=== PATIENT | female | born 1970 | race Caucasian/White ===

== ENCOUNTER 2016-02-22 15:48 | Emergency (ER) | payer OTHER ==
[~2016-02-22 15:48] MED LIST: /PANT40TA OR; BABY81CH OR; GLUC500T OR; LISI10TA4 OR; MAALSUS OR; No Historical Meds
[2016-02-22] MEDS ORDERED: BENZONATATE 100 MG CAP As Ordered ONE (18:14)
--- NOTE | 2016-02-22 18:46 | EDDOCDS ---
Physician Documentation [facility] Name: Jackelin Galindo Age: 45 yrs Sex: Female : 1970 Arrival Date: 02/22/2016 Time: 15:48 Bed I9 / 22 Private MD: NO PRIMARY PHYSICIAN, . Disposition: 02/22/16 18:28 Discharged to Home/Self Care. Impression: Acute upper respiratory infection, unspecified. - Condition is Stable. - Discharge Instructions: Upper Respiratory Infection, Adult. - Prescriptions for Tylenol- Codeine #3 300-30 mg Oral Tablet - take 2 tablet by ORAL route every 6 hours As needed MDD: 4 tabs; 30 tablet. Albuterol Sulfate 90 mcg/actuation Inhalation HFA Aerosol Inhaler - inhale 2 puff by INHALATION route every 4 hours As needed; 1 Inhaler. - Medication Reconciliation, Local Pharmacy Hours form. - Follow up: . NO PRIMARY PHYSICIAN; When: Call to arrange an appointment; Reason: Recheck today's complaints. - Problem is new. - Symptoms are unchanged. - Notes: You were evaluated in the emergency department for an upper respiratory infection. An EKG was done and it did not show any abnormalities. Tessalon Perles were administered in the ED to help with your cough. At time of discharge both Tylenol with Codeine and Albuterol was prescribed. Please make arrangements to follow-up with a primary care provider at your soonest convenience. Historical: - Allergies: No known drug Allergies; - Home Meds: 1. aspirin 81 mg Oral TbEC 1 tab once daily 2. lisinopril 5 mg Oral tab 1 tab once daily 3. metformin 1,000 mg Oral tr24 1 tab twice a day 4. naproxen 500 mg Oral TbEC 1 tab 2 times per day - PMHx: Diabetes - NIDDM: controlled; Hypertension; - PSHx: none; - Social history: Smoking status: Patient states was never smoker of tobacco. No barriers to communication noted, The patient speaks fluent Korean, Speaks appropriately for age. - Family history: Not pertinent. - : The pt / caregiver states he / she is not on anticoagulants. Home medication list is obtained from the patient. - Exposure Risk Screening:: None identified. 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 4 in. (162.56 cm); Pain 9/10; 18:03 BP 156 / 77; Pulse 68; Resp 20 S; Pulse Ox 95% on R/A; ms2 15:50 Body Mass Index 40.17 (106.14 kg, 162.56 cm) elp MDM: 18:00 Recheck B/P ordered. sd1 18:05 ECG WITH READING ER PHYS+CARDIAG ordered. EDMS 18:06 Tessalon Perle 100 mg PO once ordered. dy 18:42 Financial registration complete. zo 18:45 [facility] Payment Agreement was scanned into [employer] and attached to record. zo Administered Medications: 18:06 CANCELLED (Other Intervention Used): Chlorpheniramine-Hydrocodone Extended Release 12 jo4 hour Capsule 8 mg-10 mg 1 caps PO once 18:16 Drug: Tessalon Perle 100 mg Route: PO; ms2 Signatures: Dispatcher MedHost EDMS Maribell Arenas MD MD sd1 Bryon Ramirez RN RN ms2 Chance Gillespie RN RN dy Olin, Zoeann zo Becker, Joshua, RN RN jmb Oosthuizen, Jane, DO DO jo4 The chart was reviewed and I authenticate all verbal orders and agree with the evaluation and treatment provided.Corrections: (The following items were deleted from the chart) 18:06 18:05 Chlorpheniramine-Hydrocodone Extended Release 12 hour Capsule 8 mg-10 mg 1 caps jo4 PO once ordered. jo4 Attachments: 18:45 [facility] Payment Agreement zo MTDD
--- NOTE | 2016-02-22 18:46 | EDDOCDS ---
Nurse's Notes [facility] Name: Jackelin Galindo Age: 45 yrs Sex: Female : 1970 Arrival Date: 02/22/2016 Time: 15:48 Bed I9 / 22 Private MD: NO PRIMARY PHYSICIAN, . Diagnosis: Acute upper respiratory infection, unspecified Presentation: 02/21 15:53 Presenting complaint: Patient states: Patient reports that she has had a cold for past jmb week. Patient reports "ears and nose swimming". Patient reports bad cough. Adult Sepsis Screening: The patient does not have new or worsening altered mentation. Patient's respiratory rate is less than 22. Systolic blood pressure is greater than 100. Patient has a qSOFA score of 0- Negative Sepsis Screen. Suicide/Homicide risk assessment- the patient denies having any suicidal and/or homicidal ideations and does not present with any other emotional, behavioral or mental health complaints. Status: Patient is not a chief service dispatcher or dependent. Status:. Transition of care: patient was not received from another setting of care. 15:53 Acuity: AUGUSTIN Level 5 [facility] 15:53 Method Of Arrival: Walkin/Carried/Asstd [facility] Triage Assessment: 15:54 General: Appears in no apparent distress, Behavior is appropriate for age, cooperative. [facility] Pain: Denies pain. HIV screening NA for this visit Offered previously. Neurological: Level of Consciousness is awake, alert, obeys commands, Oriented to person, place, time, Speech is normal, Facial symmetry appears normal, Facial symmetry: tongue is midline. Respiratory: Airway is patent Respiratory effort is even, unlabored, Respiratory pattern is regular, symmetrical. Derm: Skin is pink, warm & dry. Musculoskeletal: Range of motion intact in all extremities. 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 aspirin 81 mg Oral TbEC 1 tab once daily 2. lisinopril 5 mg Oral tab 1 tab once daily 3. metformin 1,000 mg Oral tr24 1 tab twice a day 4. naproxen 500 mg Oral TbEC 1 tab 2 times per day - PMHx: Diabetes - NIDDM: controlled; Hypertension; - PSHx: none; - Social history: Smoking status: Patient states was never smoker of tobacco. No barriers to communication noted, The patient speaks fluent Yemeni, Speaks appropriately for age. - Family history: Not pertinent. - : The pt / caregiver states he / she is not on anticoagulants. Home medication list is obtained from the patient. - Exposure Risk Screening:: None identified. Screenin:17 Screening information is obtained from the patient. Fall risk: No risks identified. ms2 Assistance ADL's: requires no assistance with activities of daily living. Abuse/DV Screen: The patient / caregiver reports he/she is: not in a situation that causes fear, pain or injury. Nutritional screening: No deficits noted. Advance Directives: Currently, there is no health care proxy. There is no active DNR order. There is no living will. There is no Power of Milieu Coordinator. Advance directive information has not previously been placed in an [facility] medical record. Further advance directive information is declined. home support is adequate. Assessment: 18:00 General: Appears in no apparent distress, lying on stretcher -son sitting in chair. ms2 Behavior is cooperative. General: first contact with pt --pt states was just in.. Neurological: Level of Consciousness is awake, alert, obeys commands. Respiratory: No deficits noted. Airway is patent Respiratory effort is even, unlabored, Respiratory pattern is regular, symmetrical. Derm: Skin is pink, warm & dry. Musculoskeletal: Range of motion intact in all extremities. 18:16 General: pt medicated per order. ms2 18:45 Adult Sepsis Screening: The patient does not have new or worsening altered mentation. ms2 Patient's respiratory rate is less than 22. Systolic blood pressure is greater than 100. Patient has a qSOFA score of 0- Negative Sepsis Screen. Vital Signs: 15:50 BP 212 / 113; Pulse 89; Resp 18; Temp 97.8(O); Pulse Ox 97% ; Weight 106.14 kg; Height elp 5 ft. 4 in. (162.56 cm); Pain 9/10; 18:03 BP 156 / 77; Pulse 68; Resp 20 S; Pulse Ox 95% on R/A; ms2 15:50 Body Mass Index 40.17 (106.14 kg, 162.56 cm) [facility] Vitals: 15:50 Log In Time: February 22, 2016 at 15:48. [facility] ED Course: 15:49 Patient visited by Alena Carrion PCA. elp 15:49 NO PRIMARY PHYSICIAN, . is Private Physician. elp 15:49 Patient moved to Waiting elp 15:51 Patient visited by Alena Carrion PCA. elp 15:51 Patient moved to Pre RCE elp 15:54 Triage Initiated jmb 17:33 Patient moved to I9 / 22 jmb 17:35 [facility] Webster [facility] jo4 17:35 Maribell Arenas MD is Attending Physician. jo4 18:00 Patient visited by Maribell Arenas MD. sd1 18:01 The patient / caregiver is instructed regarding the plan of care and ED course. ms2 18:03 Patient visited by Bryon Ramirez RN. ms2 18:15 Patient visited by Iva Luevano PCA. ls3 18:15 EKG done. (by ED staff). Reviewed by Soniya Webster DO. ls3 18:16 No IV's were initiated during this patient's visit. No procedures done that require ms2 assistance. 18:17 The patient / caregiver is instructed regarding the plan of care and ED course. ms2 18:28 NO PRIMARY PHYSICIAN, . is Referral Physician. jo4 18:45 Patient visited by Bryon Ramirez RN. ms2 18:45 The patient / caregiver is instructed regarding the plan of care and ED course. ms2 18:45 [facility] Payment Agreement was scanned into [employer] and attached to record. zo Administered Medications: 18:06 CANCELLED (Other Intervention Used): Chlorpheniramine-Hydrocodone Extended Release 12 jo4 hour Capsule 8 mg-10 mg 1 caps PO once 18:16 Drug: Tessalon Perle 100 mg Route: PO; ms2 Order Results: There are currently no results for this order. Outcome: 18:28 Discharge ordered by Provider. jo4 18:45 Discharge Assessment: patient administered narcotics - yes. Pt provided with safe ms2 discharge. The following High Risk Discharge criteria are identified: None. Discharged to home ambulatory, with family, via cab. Condition: stable. Discharge instructions given to patient, Instructed on discharge instructions, follow up and referral plans. medication usage, no driving heavy equipment, no drinking with medication, Demonstrated understanding of instructions, medications, Pt was receptive of discharge instructions/ teaching. Prescriptions given X 2. No special radiology studies were completed. Property sent home with patient. 18:46 Patient left the ED. ms2 Signatures: Maribell Arenas MD MD sd1 Bryon RamirezRN RN ms2 Kari Licona Erin, SENIOR LOAN OFFICER SENIOR LOAN OFFICER elp Rosales Arango,AUTUMN RN Iva Childers, SENIOR LOAN OFFICER SENIOR LOAN OFFICER ls3 Soniya Webster DO DO jo4 MTDD
--- NOTE | 2016-02-23 07:33 | ECGEPIP ---
Stationary ECG Study 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
--- NOTE | 2016-02-24 19:47 | EDDOCDS ---
Nurse's Notes [facility] Name: Gurvinder Galindo Age: 45 yrs Sex: Female : 1970 Arrival Date: 02/22/2016 Time: 15:48 Bed I9 / 22 Private MD: NO PRIMARY PHYSICIAN, . Diagnosis: Acute upper respiratory infection, unspecified Presentation: 02/21 15:53 Presenting complaint: Patient states: Patient reports that she has had a cold for past jmb week. Patient reports "ears and nose swimming". Patient reports bad cough. Adult Sepsis Screening: The patient does not have new or worsening altered mentation. Patient's respiratory rate is less than 22. Systolic blood pressure is greater than 100. Patient has a qSOFA score of 0- Negative Sepsis Screen. Suicide/Homicide risk assessment- the patient denies having any suicidal and/or homicidal ideations and does not present with any other emotional, behavioral or mental health complaints. Status: Patient is not a service desk technician or dependent. Status:. Transition of care: patient was not received from another setting of care. 15:53 Acuity: AUGUSTIN Level 5 [facility] 15:53 Method Of Arrival: Walkin/Carried/Asstd [facility] Triage Assessment: 15:54 General: Appears in no apparent distress, Behavior is appropriate for age, cooperative. [facility] Pain: Denies pain. HIV screening NA for this visit Offered previously. Neurological: Level of Consciousness is awake, alert, obeys commands, Oriented to person, place, time, Speech is normal, Facial symmetry appears normal, Facial symmetry: tongue is midline. Respiratory: Airway is patent Respiratory effort is even, unlabored, Respiratory pattern is regular, symmetrical. Derm: Skin is pink, warm & dry. Musculoskeletal: Range of motion intact in all extremities. 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 aspirin 81 mg Oral TbEC 1 tab once daily 2. lisinopril 5 mg Oral tab 1 tab once daily 3. metformin 1,000 mg Oral tr24 1 tab twice a day 4. naproxen 500 mg Oral TbEC 1 tab 2 times per day - PMHx: Diabetes - NIDDM: controlled; Hypertension; - PSHx: none; - Social history: Smoking status: Patient states was never smoker of tobacco. No barriers to communication noted, The patient speaks fluent Brazilian, Speaks appropriately for age. - Family history: Not pertinent. - : The pt / caregiver states he / she is not on anticoagulants. Home medication list is obtained from the patient. - Exposure Risk Screening:: None identified. Screenin:17 Screening information is obtained from the patient. Fall risk: No risks identified. ms2 Assistance ADL's: requires no assistance with activities of daily living. Abuse/DV Screen: The patient / caregiver reports he/she is: not in a situation that causes fear, pain or injury. Nutritional screening: No deficits noted. Advance Directives: Currently, there is no health care proxy. There is no active DNR order. There is no living will. There is no Power of Geriatrician. Advance directive information has not previously been placed in an [facility] medical record. Further advance directive information is declined. home support is adequate. Assessment: 18:00 General: Appears in no apparent distress, lying on stretcher -son sitting in chair. ms2 Behavior is cooperative. General: first contact with pt --pt states was just in.. Neurological: Level of Consciousness is awake, alert, obeys commands. Respiratory: No deficits noted. Airway is patent Respiratory effort is even, unlabored, Respiratory pattern is regular, symmetrical. Derm: Skin is pink, warm & dry. Musculoskeletal: Range of motion intact in all extremities. 18:16 General: pt medicated per order. ms2 18:45 Adult Sepsis Screening: The patient does not have new or worsening altered mentation. ms2 Patient's respiratory rate is less than 22. Systolic blood pressure is greater than 100. Patient has a qSOFA score of 0- Negative Sepsis Screen. Vital Signs: 15:50 BP 212 / 113; Pulse 89; Resp 18; Temp 97.8(O); Pulse Ox 97% ; Weight 106.14 kg; Height elp 5 ft. 4 in. (162.56 cm); Pain 9/10; 18:03 BP 156 / 77; Pulse 68; Resp 20 S; Pulse Ox 95% on R/A; ms2 15:50 Body Mass Index 40.17 (106.14 kg, 162.56 cm) [facility] Vitals: 15:50 Log In Time: February 22, 2016 at 15:48. [facility] ED Course: 15:49 Patient visited by Alena Carrion PCA. elp 15:49 NO PRIMARY PHYSICIAN, . is Private Physician. elp 15:49 Patient moved to Waiting elp 15:51 Patient visited by Alena Carrion PCA. elp 15:51 Patient moved to Pre RCE elp 15:54 Triage Initiated jmb 17:33 Patient moved to I9 / 22 jmb 17:35 Soniya Webster DO is PHCP. jo4 17:35 Maribell Arenas MD is Attending Physician. jo4 18:00 Patient visited by Maribell Arenas MD. sd1 18:01 The patient / caregiver is instructed regarding the plan of care and ED course. ms2 18:03 Patient visited by Bryon Ramirez RN. ms2 18:15 Patient visited by Iva Luevano PCA. ls3 18:15 EKG done. (by ED staff). Reviewed by Soniya Webster DO. ls3 18:16 No IV's were initiated during this patient's visit. No procedures done that require ms2 assistance. 18:17 The patient / caregiver is instructed regarding the plan of care and ED course. ms2 18:28 NO PRIMARY PHYSICIAN, . is Referral Physician. jo4 18:45 Patient visited by Bryon Ramirez RN. ms2 18:45 The patient / caregiver is instructed regarding the plan of care and ED course. ms2 18:45 [facility] Payment Agreement was scanned into [employer] and attached to record. zo 22:03 T-Sheet-- Draft Copy was scanned into [employer] and attached to record. klr 02/22 07:59 EKG-ADULT Returned. EDMS 02/23 09:13 ECG/EKG was scanned into [employer] and attached to record. 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 [email or web address] 18:45 Discharge Assessment: patient administered narcotics - yes. Pt provided with safe ms2 discharge. The following High Risk Discharge criteria are identified: None. Discharged to home ambulatory, with family, via cab. Condition: stable. Discharge instructions given to patient, Instructed on discharge instructions, follow up and referral plans. medication usage, no driving heavy equipment, no drinking with medication, Demonstrated understanding of instructions, medications, Pt was receptive of discharge instructions/ teaching. Prescriptions given X 2. No special radiology studies were completed. Property sent home with patient. 18:46 Patient left the ED. ms2 Signatures: Dispatcher MedHost EDMS Maribell Arenas MD MD sd1 Bryon Ramirez,RN RN ms2 Latasha Hicks, Reg Reg gb [place], Zoeann zo [place]ia[place], Alena, ANESTHESIOLOGY TECH ANESTHESIOLOGY TECH frankiep Rosales Arango,RN RN vIa Childers, ANESTHESIOLOGY TECH ANESTHESIOLOGY TECH ls3 Soniya Webster, DO jo4 Nichole Hernandez Chart Complete MTDD
--- NOTE | 2016-02-24 19:47 | EDDOCDS ---
Physician Documentation [facility] Name: Jackelin Galindo Age: 45 yrs Sex: Female : 1970 Arrival Date: 02/22/2016 Time: 15:48 Bed I9 / 22 Private MD: NO PRIMARY PHYSICIAN, . Disposition: 02/22/16 18:28 Discharged to Home/Self Care. Impression: Acute upper respiratory infection, unspecified. - Condition is Stable. - Discharge Instructions: Upper Respiratory Infection, Adult. - Prescriptions for Tylenol- Codeine #3 300-30 mg Oral Tablet - take 2 tablet by ORAL route every 6 hours As needed MDD: 4 tabs; 30 tablet. Albuterol Sulfate 90 mcg/actuation Inhalation HFA Aerosol Inhaler - inhale 2 puff by INHALATION route every 4 hours As needed; 1 Inhaler. - Medication Reconciliation, Local Pharmacy Hours form. - Follow up: . NO PRIMARY PHYSICIAN; When: Call to arrange an appointment; Reason: Recheck today's complaints. - Problem is new. - Symptoms are unchanged. - Notes: You were evaluated in the emergency department for an upper respiratory infection. An EKG was done and it did not show any abnormalities. Tessalon Perles were administered in the ED to help with your cough. At time of discharge both Tylenol with Codeine and Albuterol was prescribed. Please make arrangements to follow-up with a primary care provider at your soonest convenience. Historical: - Allergies: No known drug Allergies; - Home Meds: 1. aspirin 81 mg Oral TbEC 1 tab once daily 2. lisinopril 5 mg Oral tab 1 tab once daily 3. metformin 1,000 mg Oral tr24 1 tab twice a day 4. naproxen 500 mg Oral TbEC 1 tab 2 times per day - PMHx: Diabetes - NIDDM: controlled; Hypertension; - PSHx: none; - Social history: Smoking status: Patient states was never smoker of tobacco. No barriers to communication noted, The patient speaks fluent Yi, Speaks appropriately for age. - Family history: Not pertinent. - : The pt / caregiver states he / she is not on anticoagulants. Home medication list is obtained from the patient. - Exposure Risk Screening:: None identified. 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 4 in. (162.56 cm); Pain 9/10; 18:03 BP 156 / 77; Pulse 68; Resp 20 S; Pulse Ox 95% on R/A; ms2 15:50 Body Mass Index 40.17 (106.14 kg, 162.56 cm) elp MDM: 18:00 Recheck B/P ordered. sd1 18:05 ECG WITH READING ER PHYS+CARDIAG ordered. EDMS 18:06 Tessalon Perle 100 mg PO once ordered. dy 18:42 Financial registration complete. zo 18:45 [facility] Payment Agreement was scanned into [employer] and attached to record. zo 22:03 T-Sheet-- Draft Copy was scanned into [employer] and attached to record. klr 02/23 09:14 ECG/EKG was scanned into [employer] and attached to record. gb Administered Medications: 02/21 18:06 CANCELLED (Other Intervention Used): Chlorpheniramine-Hydrocodone Extended Release 12 jo4 hour Capsule 8 mg-10 mg 1 caps PO once 18:16 Drug: Tessalon Perle 100 mg Route: PO; ms2 Signatures: Dispatcher [employer] EDMaribell Hassan MD MD sd1 Bryon Ramirez RN RN ms2 Latasha Hicks, Reg Reg gb Chance Gillespie RN RN dy Olin, Zoeann zo Becker, Joshua, RN RN jmb Oosthuizen, Jane, DO DO jo4 Nichole Hernandez The chart was reviewed and I authenticate all verbal orders and agree with the evaluation and treatment provided.Corrections: (The following items were deleted from the chart) 18:06 18:05 Chlorpheniramine-Hydrocodone Extended Release 12 hour Capsule 8 mg-10 mg 1 caps jo4 PO once ordered. jo4 Attachments: 18:45 [facility] Payment Agreement zo 22:03 T-Sheet-- Draft Copy klr 02/23 09:14 ECG/EKG gb Chart Complete MTDD
--- NOTE | 2016-02-24 19:47 | EDDOCDS ---
Physician Documentation [facility] Name: Jackelin Galindo Age: 45 yrs Sex: Female : 1970 Arrival Date: 02/22/2016 Time: 15:48 Bed I9 / 22 Private MD: NO PRIMARY PHYSICIAN, . Disposition: 02/22/16 18:28 Discharged to Home/Self Care. Impression: Acute upper respiratory infection, unspecified. - Condition is Stable. - Discharge Instructions: Upper Respiratory Infection, Adult. - Prescriptions for Tylenol- Codeine #3 300-30 mg Oral Tablet - take 2 tablet by ORAL route every 6 hours As needed MDD: 4 tabs; 30 tablet. Albuterol Sulfate 90 mcg/actuation Inhalation HFA Aerosol Inhaler - inhale 2 puff by INHALATION route every 4 hours As needed; 1 Inhaler. - Medication Reconciliation, Local Pharmacy Hours form. - Follow up: . NO PRIMARY PHYSICIAN; When: Call to arrange an appointment; Reason: Recheck today's complaints. - Problem is new. - Symptoms are unchanged. - Notes: You were evaluated in the emergency department for an upper respiratory infection. An EKG was done and it did not show any abnormalities. Tessalon Perles were administered in the ED to help with your cough. At time of discharge both Tylenol with Codeine and Albuterol was prescribed. Please make arrangements to follow-up with a primary care provider at your soonest convenience. Historical: - Allergies: No known drug Allergies; - Home Meds: 1. aspirin 81 mg Oral TbEC 1 tab once daily 2. lisinopril 5 mg Oral tab 1 tab once daily 3. metformin 1,000 mg Oral tr24 1 tab twice a day 4. naproxen 500 mg Oral TbEC 1 tab 2 times per day - PMHx: Diabetes - NIDDM: controlled; Hypertension; - PSHx: none; - Social history: Smoking status: Patient states was never smoker of tobacco. No barriers to communication noted, The patient speaks fluent Frisian, Speaks appropriately for age. - Family history: Not pertinent. - : The pt / caregiver states he / she is not on anticoagulants. Home medication list is obtained from the patient. - Exposure Risk Screening:: None identified. 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 4 in. (162.56 cm); Pain 9/10; 18:03 BP 156 / 77; Pulse 68; Resp 20 S; Pulse Ox 95% on R/A; ms2 15:50 Body Mass Index 40.17 (106.14 kg, 162.56 cm) elp MDM: 18:00 Recheck B/P ordered. sd1 18:05 ECG WITH READING ER PHYS+CARDIAG ordered. EDMS 18:06 Tessalon Perle 100 mg PO once ordered. dy 18:42 Financial registration complete. zo 18:45 [facility] Payment Agreement was scanned into Chegg and attached to record. zo 22:03 T-Sheet-- Draft Copy was scanned into Chegg and attached to record. klr 02/23 09:14 ECG/EKG was scanned into Chegg and attached to record. gb Administered Medications: 02/21 18:06 CANCELLED (Other Intervention Used): Chlorpheniramine-Hydrocodone Extended Release 12 jo4 hour Capsule 8 mg-10 mg 1 caps PO once 18:16 Drug: Tessalon Perle 100 mg Route: PO; ms2 Signatures: Dispatcher [employer] EDMaribell Hassan MD MD sd1 Bryon Ramirez RN RN ms2 Latasha Hicks, Reg Reg gb Chance Gillespie RN RN dy Olin, Zoeann zo Becker, Joshua, RN RN jmb Oosthuizen, Jane, DO DO jo4 Nichole Hernandez The chart was reviewed and I authenticate all verbal orders and agree with the evaluation and treatment provided.Corrections: (The following items were deleted from the chart) 18:06 18:05 Chlorpheniramine-Hydrocodone Extended Release 12 hour Capsule 8 mg-10 mg 1 caps jo4 PO once ordered. jo4 Attachments: 18:45 [facility] Payment Agreement zo 22:03 T-Sheet-- Draft Copy klr 02/23 09:14 ECG/EKG gb Chart Complete MTDD
== END 2016-02-22 18:46 | disposition home or self-care (01) ==
LOC: M ED 15:48
DX: J06.9 Acute upper respiratory infection, unspecified (principal); R07.9 Chest pain, unspecified; R05 Cough; R06.02 Shortness of breath; I10 Essential (primary) hypertension; E11.9 Type 2 diabetes mellitus without complications; Z79.82 Long term (current) use of aspirin; Z79.1 Long term (current) use of non-steroidal anti-inflammatories (NSAID); Z79.899 Other long term (current) drug therapy

== ENCOUNTER 2016-03-07 16:46 | Emergency (ER) | payer OTHER ==
--- NOTE | 2016-03-07 17:56 | EDDOCDS ---
Physician Documentation [facility] Name: Jackelin Galindo Age: 45 yrs Sex: Female : 1970 Arrival Date: 03/07/2016 Time: 16:46 Bed TR7 Private MD: Disposition: 03/07/16 17:46 Discharged to Home/Self Care. Impression: Superficial injury of head, Strain of muscle, fascia and tendon at neck level, Strain of muscle, fascia and tendon of lower back. - Condition is Stable. - Discharge Instructions: Facial or Scalp Contusion. - Prescriptions for Ibuprofen 800 mg Oral Tablet - take 1 tablet by ORAL route every 8 hours As needed take with food; 30 tablet. Robaxin 500 mg Oral Tablet - take 2 tablet by ORAL route every 6 hours As needed; 40 tablet. - Medication Reconciliation, Local Pharmacy Hours form. - Follow up: Private Physician; When: 2 - 3 days; Reason: Further diagnostic work-up, Recheck today's complaints, Continuance of care. - Problem is new. - Symptoms are unchanged. Historical: - Allergies: no known allergies; - Home Meds: 1. aspirin 81 mg Oral TbEC 1 tab once daily 2. lisinopril 5 mg Oral tab 1 tab once daily 3. metformin 1,000 mg Oral tr24 1 tab twice a day 4. naproxen 500 mg Oral TbEC 1 tab 2 times per day - PMHx: Diabetes - NIDDM: controlled; Hypertension; - PSHx: none; - Social history: Smoking status: Patient states was never smoker of tobacco. No barriers to communication noted, The patient speaks fluent Grenadian. - Family history: Not pertinent. - : The pt / caregiver states he / she is not on anticoagulants. Home medication list is obtained from the patient. - Exposure Risk Screening:: None identified. 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 4 in. (162.56 cm) (R); 16:50 Body Mass Index 38.45 (101.60 kg, 162.56 cm) dd6 MDM: 17:34 Financial registration complete. ks16 17:35 [facility] Payment Agreement was scanned into [employer] and attached to record. ks16 Signatures: Brooke Hernandez, RN RN Jorge Larkin PA PA btw Becker, JoshuaRN RN María Salinas, Reg Reg ks16 The chart was reviewed and I authenticate all verbal orders and agree with the evaluation and treatment provided.Attachments: 17:35 [facility] Payment Agreement ks16 MTDD
--- NOTE | 2016-03-07 17:56 | EDDOCDS ---
Nurse's Notes [facility] Name: Jackelin Galindo Age: 45 yrs Sex: Female : 1970 Arrival Date: 03/07/2016 Time: 16:46 Bed TR7 Private MD: Diagnosis: Superficial injury of head;Strain of muscle, fascia and tendon at neck level;Strain of muscle, fascia and tendon of lower back Presentation: 03/07 16:53 Presenting complaint: Patient states: picture frame fell on head approx 30 minutes ago jjr denies LOC pain to top of head back of neck to thoracic spine, c collar in place. Risk Factors No acute neurological deficit is noted. Adult Sepsis Screening: The patient does not have new or worsening altered mentation. Patient's respiratory rate is less than 22. Systolic blood pressure is greater than 100. Patient has a qSOFA score of 0- Negative Sepsis Screen. Suicide/Homicide risk assessment- the patient denies having any suicidal and/or homicidal ideations and does not present with any other emotional, behavioral or mental health complaints. Status: Patient is not a field service analyst or dependent. Transition of care: patient was not received from another setting of care. 16:53 Acuity: AUGUSTIN Level 4 jr 16:53 Method Of Arrival: Ambulance jr Triage Assessment: 16:55 General: Appears in no apparent distress, uncomfortable, Behavior is appropriate for [facility] age. Pain: Pain currently is 10 out of 10 on a pain scale. HIV screening NA for this visit Offered previously. Neurological: No deficits noted. Musculoskeletal: Reports pain in back of neck and thoracic area. 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 aspirin 81 mg Oral TbEC 1 tab once daily 2. lisinopril 5 mg Oral tab 1 tab once daily 3. metformin 1,000 mg Oral tr24 1 tab twice a day 4. naproxen 500 mg Oral TbEC 1 tab 2 times per day - PMHx: Diabetes - NIDDM: controlled; Hypertension; - PSHx: none; - Social history: Smoking status: Patient states was never smoker of tobacco. No barriers to communication noted, The patient speaks fluent Faroese. - Family history: Not pertinent. - : The pt / caregiver states he / she is not on anticoagulants. Home medication list is obtained from the patient. - Exposure Risk Screening:: None identified. Screenin:50 Screening information is obtained from the patient. Fall risk: No risks identified. jmb Assistance ADL's: requires no assistance with activities of daily living. Abuse/DV Screen: The patient / caregiver reports he/she is: not in a situation that causes fear, pain or injury. Nutritional screening: No deficits noted. Advance Directives: Currently, there is no health care proxy. There is no active DNR order. There is no living will. There is no Power of Pricing Specialist. home support is adequate. Assessment: 17:50 General: Patient instructed on discharge instructions. Patient asked if there were any jmb questions regarding discharge, patient stated no. Patient signed discharge instructions. Patient discharged ins table condition.. Neurological: No deficits noted. Vital Signs: 16:50 BP 175 / 77; Pulse 76; Resp 18 S; Temp 97.6(O); Pulse Ox 100% on R/A; Weight 101.6 kg dd6 (R); Height 5 ft. 4 in. (162.56 cm) (R); 16:50 Body Mass Index 38.45 (101.60 kg, 162.56 cm) dd6 Vitals: 16:50 Log In Time: March 07, 2016 at 16:48. dd6 ED Course: 16:47 Patient visited by Glory Montalvo, Mask Layout Designer. deg 16:47 Patient moved to Waiting deg 16:54 Triage Initiated jjr 16:55 Patient moved to Pre RCE dd6 17:06 Patient moved to Triage 3 ct3 17:16 [facility] Davis [facility] btw 17:16 Umu Samuel MD is Attending Physician. btw 17:16 Patient visited by Jorge Davis PA. btw 17:35 [facility] Payment Agreement was scanned into magnetU and attached to record. ks16 17:50 The patient / caregiver is instructed regarding the plan of care and ED course. jmb 17:50 No IV's were initiated during this patient's visit. No procedures done that require jmb assistance. 17:53 Patient moved to TR7 jmb Order Results: There are currently no results for this order. Outcome: 17:46 Discharge ordered by Provider. btw 17:50 Discharge Assessment: Patient awake, alert and oriented x 3. No cognitive and/or jmb functional deficits noted. Patient verbalized understanding of disposition instructions. Patient awake and alert. obeys commands, Oriented to person, place and time. Patient verbalized understanding of disposition instructions. Patient has no functional deficits. patient administered narcotics - no. The following High Risk Discharge criteria are identified: None. Discharged to home ambulatory. Condition: stable. Discharge instructions given to patient, Instructed on discharge instructions, follow up and referral plans. medication usage, Demonstrated understanding of instructions, medications, Pt was receptive of discharge instructions/ teaching. Prescriptions given X 2. No special radiology studies were completed. Property sent home with patient. 17:55 Patient left the ED. emmie Signatures: Glory Montalvo, Mask Layout Designer Unit deg Brooke Hernandez, RN RN Hero Ro, TANNING DRUM OPERATOR TANNING DRUM OPERATOR dd6 Jorge Davis PA PA btw Umm Jara, TANNING DRUM OPERATOR TANNING DRUM OPERATOR ct3 Rosales Arango,María Schreiber RN, Reg Reg ks16 MTDD
--- NOTE | 2016-03-09 18:56 | EDDOCDS ---
Physician Documentation [facility] Name: Jackelin Galindo Age: 45 yrs Sex: Female : 1970 Arrival Date: 03/07/2016 Time: 16:46 Bed TR7 Private MD: Disposition: 03/07/16 17:46 Discharged to Home/Self Care. Impression: Superficial injury of head, Strain of muscle, fascia and tendon at neck level, Strain of muscle, fascia and tendon of lower back. - Condition is Stable. - Discharge Instructions: Facial or Scalp Contusion. - Prescriptions for Ibuprofen 800 mg Oral Tablet - take 1 tablet by ORAL route every 8 hours As needed take with food; 30 tablet. Robaxin 500 mg Oral Tablet - take 2 tablet by ORAL route every 6 hours As needed; 40 tablet. - Medication Reconciliation, Local Pharmacy Hours form. - Follow up: Private Physician; When: 2 - 3 days; Reason: Further diagnostic work-up, Recheck today's complaints, Continuance of care. - Problem is new. - Symptoms are unchanged. Historical: - Allergies: no known allergies; - Home Meds: 1. aspirin 81 mg Oral TbEC 1 tab once daily 2. lisinopril 5 mg Oral tab 1 tab once daily 3. metformin 1,000 mg Oral tr24 1 tab twice a day 4. naproxen 500 mg Oral TbEC 1 tab 2 times per day - PMHx: Diabetes - NIDDM: controlled; Hypertension; - PSHx: none; - Social history: Smoking status: Patient states was never smoker of tobacco. No barriers to communication noted, The patient speaks fluent Ghanaian. - Family history: Not pertinent. - : The pt / caregiver states he / she is not on anticoagulants. Home medication list is obtained from the patient. - Exposure Risk Screening:: None identified. 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 4 in. (162.56 cm) (R); 16:50 Body Mass Index 38.45 (101.60 kg, 162.56 cm) dd6 MDM: 17:34 Financial registration complete. 17:35 [facility] Payment Agreement was scanned into Leeo and attached to record. 03/08 18:37 T-Sheet-- Draft Copy was scanned into [employer]PageBooks[employer] and attached to record. kf3 Signatures: Marcelino Yusuf, Reg Reg kf3 Brooke Hernandez RN RN Jorge Larkin PA PA btw Becker, Joshua, RN RN jmb Sorenson, Kimberly, Reg Reg ks16 The chart was reviewed and I authenticate all verbal orders and agree with the evaluation and treatment provided.Attachments: 03/07 17:35 [facility] Payment Agreement 03/08 18:37 T-Sheet-- Draft Copy kf3 Chart Complete MTDD
--- NOTE | 2016-03-09 18:56 | EDDOCDS ---
Physician Documentation [facility] Name: Jackelin Galindo Age: 45 yrs Sex: Female : 1970 Arrival Date: 03/07/2016 Time: 16:46 Bed TR7 Private MD: Disposition: 03/07/16 17:46 Discharged to Home/Self Care. Impression: Superficial injury of head, Strain of muscle, fascia and tendon at neck level, Strain of muscle, fascia and tendon of lower back. - Condition is Stable. - Discharge Instructions: Facial or Scalp Contusion. - Prescriptions for Ibuprofen 800 mg Oral Tablet - take 1 tablet by ORAL route every 8 hours As needed take with food; 30 tablet. Robaxin 500 mg Oral Tablet - take 2 tablet by ORAL route every 6 hours As needed; 40 tablet. - Medication Reconciliation, Local Pharmacy Hours form. - Follow up: Private Physician; When: 2 - 3 days; Reason: Further diagnostic work-up, Recheck today's complaints, Continuance of care. - Problem is new. - Symptoms are unchanged. Historical: - Allergies: no known allergies; - Home Meds: 1. aspirin 81 mg Oral TbEC 1 tab once daily 2. lisinopril 5 mg Oral tab 1 tab once daily 3. metformin 1,000 mg Oral tr24 1 tab twice a day 4. naproxen 500 mg Oral TbEC 1 tab 2 times per day - PMHx: Diabetes - NIDDM: controlled; Hypertension; - PSHx: none; - Social history: Smoking status: Patient states was never smoker of tobacco. No barriers to communication noted, The patient speaks fluent Afghan. - Family history: Not pertinent. - : The pt / caregiver states he / she is not on anticoagulants. Home medication list is obtained from the patient. - Exposure Risk Screening:: None identified. 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 4 in. (162.56 cm) (R); 16:50 Body Mass Index 38.45 (101.60 kg, 162.56 cm) dd6 MDM: 17:34 Financial registration complete. 17:35 [facility] Payment Agreement was scanned into [employer] and attached to record. 03/08 18:37 T-Sheet-- Draft Copy was scanned into StorypandaST and attached to record. kf3 Signatures: Marcelino Yusuf, Reg Reg kf3 Brooke Hernandez RN RN Jorge Larkin PA PA btw Becker, Joshua, RN RN jmb Sorenson, Kimberly, Reg Reg ks16 The chart was reviewed and I authenticate all verbal orders and agree with the evaluation and treatment provided.Attachments: 03/07 17:35 [facility] Payment Agreement 03/08 18:37 T-Sheet-- Draft Copy kf3 Chart Complete MTDD
--- NOTE | 2016-03-09 18:56 | EDDOCDS ---
Nurse's Notes [facility] Name: Jackelin Galindo Age: 45 yrs Sex: Female : 1970 Arrival Date: 03/07/2016 Time: 16:46 Bed TR7 Private MD: Diagnosis: Superficial injury of head;Strain of muscle, fascia and tendon at neck level;Strain of muscle, fascia and tendon of lower back Presentation: 03/07 16:53 Presenting complaint: Patient states: picture frame fell on head approx 30 minutes ago jjr denies LOC pain to top of head back of neck to thoracic spine, c collar in place. Risk Factors No acute neurological deficit is noted. Adult Sepsis Screening: The patient does not have new or worsening altered mentation. Patient's respiratory rate is less than 22. Systolic blood pressure is greater than 100. Patient has a qSOFA score of 0- Negative Sepsis Screen. Suicide/Homicide risk assessment- the patient denies having any suicidal and/or homicidal ideations and does not present with any other emotional, behavioral or mental health complaints. Status: Patient is not a cabin service agent or dependent. Transition of care: patient was not received from another setting of care. 16:53 Acuity: AUGUSTIN Level 4 jr 16:53 Method Of Arrival: Ambulance jr Triage Assessment: 16:55 General: Appears in no apparent distress, uncomfortable, Behavior is appropriate for [facility] age. Pain: Pain currently is 10 out of 10 on a pain scale. HIV screening NA for this visit Offered previously. Neurological: No deficits noted. Musculoskeletal: Reports pain in back of neck and thoracic area. 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 aspirin 81 mg Oral TbEC 1 tab once daily 2. lisinopril 5 mg Oral tab 1 tab once daily 3. metformin 1,000 mg Oral tr24 1 tab twice a day 4. naproxen 500 mg Oral TbEC 1 tab 2 times per day - PMHx: Diabetes - NIDDM: controlled; Hypertension; - PSHx: none; - Social history: Smoking status: Patient states was never smoker of tobacco. No barriers to communication noted, The patient speaks fluent Kenyan. - Family history: Not pertinent. - : The pt / caregiver states he / she is not on anticoagulants. Home medication list is obtained from the patient. - Exposure Risk Screening:: None identified. Screenin:50 Screening information is obtained from the patient. Fall risk: No risks identified. jmb Assistance ADL's: requires no assistance with activities of daily living. Abuse/DV Screen: The patient / caregiver reports he/she is: not in a situation that causes fear, pain or injury. Nutritional screening: No deficits noted. Advance Directives: Currently, there is no health care proxy. There is no active DNR order. There is no living will. There is no Power of Data Scientist. home support is adequate. Assessment: 17:50 General: Patient instructed on discharge instructions. Patient asked if there were any jmb questions regarding discharge, patient stated no. Patient signed discharge instructions. Patient discharged ins table condition.. Neurological: No deficits noted. Vital Signs: 16:50 BP 175 / 77; Pulse 76; Resp 18 S; Temp 97.6(O); Pulse Ox 100% on R/A; Weight 101.6 kg dd6 (R); Height 5 ft. 4 in. (162.56 cm) (R); 16:50 Body Mass Index 38.45 (101.60 kg, 162.56 cm) dd6 Vitals: 16:50 Log In Time: March 07, 2016 at 16:48. dd6 ED Course: 16:47 Patient visited by Glory Montalvo, Process Steward. deg 16:47 Patient moved to Waiting deg 16:54 Triage Initiated jjr 16:55 Patient moved to Pre RCE dd6 17:06 Patient moved to Triage 3 ct3 17:16 [facility]. btw 17:16 Umu Samuel MD is Attending Physician. btw 17:16 Patient visited by Jorge Davis PA. btw 17:35 [facility] Payment Agreement was scanned into Booklr and attached to record. ks16 17:50 The patient / caregiver is instructed regarding the plan of care and ED course. jmb 17:50 No IV's were initiated during this patient's visit. No procedures done that require jmb assistance. 17:53 Patient moved to [facility] jmb 03/08 18:37 T-Sheet-- Draft Copy was scanned into Booklr and attached to record. kf3 Order Results: There are currently no results for this order. Outcome: 03/07 17:46 Discharge ordered by Provider. btw 17:50 Discharge Assessment: Patient awake, alert and oriented x 3. No cognitive and/or jmb functional deficits noted. Patient verbalized understanding of disposition instructions. Patient awake and alert. obeys commands, Oriented to person, place and time. Patient verbalized understanding of disposition instructions. Patient has no functional deficits. patient administered narcotics - no. The following High Risk Discharge criteria are identified: None. Discharged to home ambulatory. Condition: stable. Discharge instructions given to patient, Instructed on discharge instructions, follow up and referral plans. medication usage, Demonstrated understanding of instructions, medications, Pt was receptive of discharge instructions/ teaching. Prescriptions given X 2. No special radiology studies were completed. Property sent home with patient. 17:55 Patient left the ED. emmie Signatures: Glory Montalvo, Process Steward Unit deg Marcelino Yusuf, Reg Reg kf3 Brooke Hernandez, RN RN Hero Ro, SECURITY PATROL DRIVER SECURITY PATROL DRIVER dd6 Jorge Davis PA PA btw Umm Jara, SECURITY PATROL DRIVER SECURITY PATROL DRIVER ct3 Rosales Arango RN RN jmb Sorenson, Kimberly, Reg Reg ks16 Chart Complete MTDJeimy
== END 2016-03-07 17:55 | disposition home or self-care (01) ==
LOC: M ED 16:46
DX: S00.03XA Contusion of scalp, initial encounter (principal); S16.1XXA Strain of muscle, fascia and tendon at neck level, initial encounter; S29.012A Strain of muscle and tendon of back wall of thorax, initial encounter; S39.012A Strain of muscle, fascia and tendon of lower back, initial encounter; W22.8XXA Striking against or struck by other objects, initial encounter; Y92.019 Unspecified place in single-family (private) house as the place of occurrence of the external cause; Y93.89 Activity, other specified; Y99.8 Other external cause status; E11.9 Type 2 diabetes mellitus without complications; I10 Essential (primary) hypertension; Z79.82 Long term (current) use of aspirin; Z79.1 Long term (current) use of non-steroidal anti-inflammatories (NSAID); Z79.899 Other long term (current) drug therapy

== ENCOUNTER 2016-03-30 11:53 | Emergency (ER) | payer OTHER ==
--- NOTE | 2016-03-30 12:29 | EDDOCDS ---
Physician Documentation [facility] Name: Jackelin Galindo Age: 46 yrs Sex: Female : 1970 Arrival Date: 03/30/2016 Time: 11:53 Bed Triage 1 Private MD: No Pcp Disposition: 03/30/16 12:24 Discharged to Home/Self Care. Impression: Radiculopathy, lumbar region. - Condition is Stable. - Discharge Instructions: Lumbosacral Radiculopathy, Back Exercises, [id number]. - Prescriptions for Ibuprofen 600 mg Oral Tablet - take 1 tablet by ORAL route every 6 hours As needed take with food; 30 tablet. Cyclobenzaprine 10 mg Oral Tablet - take 1 tablet by ORAL route 3 times per day As needed; 15 tablet. - Medication Reconciliation, Local Pharmacy Hours form. - [facility]; When: Call to arrange an appointment; Reason: Recheck today's complaints, Continuance of care. - Problem is an ongoing problem. - Symptoms are unchanged. Historical: - Allergies: no known allergies; - Home Meds: 1. metformin 1,000 mg Oral tr24 1 tab twice a day 2. aspirin 81 mg Oral TbEC 1 tab once daily 3. lisinopril 5 mg Oral tab 1 tab once daily - PMHx: Diabetes - NIDDM: controlled; Hypertension; - PSHx: none; - Social history: Smoking status: Patient states was never smoker of tobacco. No barriers to communication noted, The patient speaks fluent Maldivian, Speaks appropriately for age. - Family history: Not pertinent. - : The pt / caregiver states he / she is not on anticoagulants. Home medication list is obtained from the patient. - Exposure Risk Screening:: None identified. TOMBSTONE POLISHER: 03/30 12:04 LMP 03/19/2016 pml Vital Signs: 11:56 BP 175 / 88 RA Sitting (auto/reg); Pulse 82; Resp 18; Temp 96.9; Pulse Ox 96% on R/A; jrd Weight 100.24 kg / 220.99 lbs (R); Height 5 ft. 4 in. (162.56 cm) (R); Pain 10/10; 11:56 Body Mass Index 37.93 (100.24 kg, 162.56 cm) jrd Signatures: Jesus Guerra, METAL PATTERNMAKER METAL PATTERNMAKER Huyen Erickson,RN RN pml Katherine Teryr,RN RN js13 MTDD
--- NOTE | 2016-03-30 12:29 | EDDOCDS ---
Nurse's Notes [facility] Name: Jackelin Galindo Age: 46 yrs Sex: Female : 1970 Arrival Date: 03/30/2016 Time: 11:53 Bed Triage 1 Private MD: No Pcp Diagnosis: Radiculopathy, lumbar region Presentation: 03/30 12:03 Presenting complaint: Patient states: hip and leg pain for 2 weeks - no injury recalled pml - reports getting worse. Adult Sepsis Screening: The patient does not have new or worsening altered mentation. Patient's respiratory rate is less than 22. Systolic blood pressure is greater than 100. Patient has a qSOFA score of 0- Negative Sepsis Screen. Suicide/Homicide risk assessment- the patient denies having any suicidal and/or homicidal ideations and does not present with any other emotional, behavioral or mental health complaints. Status: Patient is not a director of anesthesia services or dependent. Transition of care: patient was not received from another setting of care. 12:03 Acuity: AUGUSTIN Level 4 pml 12:03 Method Of Arrival: Walkin/Carried/Asstd pml Triage Assessment: 12:04 General: Appears uncomfortable, Behavior is cooperative. Pain: Location: right leg Pain pml currently is 10 out of 10 on a pain scale. HIV screening NA for this visit Offered previously. 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 metformin 1,000 mg Oral tr24 1 tab twice a day 2. aspirin 81 mg Oral TbEC 1 tab once daily 3. lisinopril 5 mg Oral tab 1 tab once daily - PMHx: Diabetes - NIDDM: controlled; Hypertension; - PSHx: none; - Social history: Smoking status: Patient states was never smoker of tobacco. No barriers to communication noted, The patient speaks fluent Persian, Speaks appropriately for age. - Family history: Not pertinent. - : The pt / caregiver states he / she is not on anticoagulants. Home medication list is obtained from the patient. - Exposure Risk Screening:: None identified. Screenin:25 Screening information is obtained from the patient. Fall risk: No risks identified. js13 Assistance ADL's: requires no assistance with activities of daily living. Abuse/DV Screen: The patient / caregiver reports he/she is: not in a situation that causes fear, pain or injury. Nutritional screening: No deficits noted. Advance Directives: There is no active DNR order. home support is adequate. Vital Signs: 11:56 BP 175 / 88 RA Sitting (auto/reg); Pulse 82; Resp 18; Temp 96.9; Pulse Ox 96% on R/A; jrd Weight 100.24 kg (R); Height 5 ft. 4 in. (162.56 cm) (R); Pain 10/10; 11:56 Body Mass Index 37.93 (100.24 kg, 162.56 cm) [facility] Vitals: 11:56 Log In Time: March 30, 2016 at 11:45. [facility] ED Course: 11:55 Patient visited by Afshin Cortes PCA. jrd 11:55 Patient moved to Waiting jrd 11:56 No Pcp is Private Physician. jrd 11:57 Patient visited by Afshin Cortes PCA. jrd 11:57 Patient moved to Pre RCE jrd 12:03 Triage Initiated pml 12:05 Patient visited by Huyen Dowd RN. pml 12:11 Patient moved to Triage 1 ar3 12:15 Jesus Guerra FNP is PHCP. ke 12:15 Patient visited by Jesus Guerra FNP. ke 12:15 Patient visited by Jesus Guerra FNP. ke 12:23 [facility] is Referral Physician. ke 12:25 The patient / caregiver is instructed regarding the plan of care and ED course. js13 12:25 No IV's were initiated during this patient's visit. No procedures done that require js13 assistance. Order Results: There are currently no results for this order. Outcome: 12:24 Discharge ordered by Provider. ke 12:25 Discharge Assessment: Patient awake, alert and oriented x 3. No cognitive and/or js13 functional deficits noted. Patient verbalized understanding of disposition instructions. patient administered narcotics - no. The following High Risk Discharge criteria are identified: None. Discharged to home ambulatory. Condition: stable. Discharge instructions given to patient, Instructed on discharge instructions, follow up and referral plans. medication usage, Demonstrated understanding of instructions, medications, Pt was receptive of discharge instructions/ teaching. No special radiology studies were completed. Property :Personal belongings accompany Pt. 12:27 Prescriptions given X 2. js13 12:28 Patient left the ED. js13 Signatures: Jesus Guerra, COMPUTER TEACHER COMPUTER TEACHER ke Cande Garay, ENVIRONMENTAL SERVICES COORDINATOR ENVIRONMENTAL SERVICES COORDINATOR ar3 Huyen DowdRN RN pml Katherine Terry RN RN js13 Afshin Cortes, ENVIRONMENTAL SERVICES COORDINATOR ENVIRONMENTAL SERVICES COORDINATOR jrd MTDD
--- NOTE | 2016-04-01 13:30 | EDDOCDS ---
Nurse's Notes [facility] Name: Jackelin Galindo Age: 46 yrs Sex: Female : 1970 Arrival Date: 03/30/2016 Time: 11:53 Bed Triage 1 Private MD: No Pcp Diagnosis: Radiculopathy, lumbar region Presentation: 03/30 12:03 Presenting complaint: Patient states: hip and leg pain for 2 weeks - no injury recalled pml - reports getting worse. Adult Sepsis Screening: The patient does not have new or worsening altered mentation. Patient's respiratory rate is less than 22. Systolic blood pressure is greater than 100. Patient has a qSOFA score of 0- Negative Sepsis Screen. Suicide/Homicide risk assessment- the patient denies having any suicidal and/or homicidal ideations and does not present with any other emotional, behavioral or mental health complaints. 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 Transition of care: patient was not received from another setting of care. 12:03 Acuity: AUGUSTIN Level 4 pml 12:03 Method Of Arrival: Walkin/Carried/Asstd pml Triage Assessment: 12:04 General: Appears uncomfortable, Behavior is cooperative. Pain: Location: right leg Pain pml currently is 10 out of 10 on a pain scale. HIV screening NA for this visit Offered previously. 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 metformin 1,000 mg Oral tr24 1 tab twice a day 2. aspirin 81 mg Oral TbEC 1 tab once daily 3. lisinopril 5 mg Oral tab 1 tab once daily - PMHx: Diabetes - NIDDM: controlled; Hypertension; - PSHx: none; - Social history: Smoking status: Patient states was never smoker of tobacco. No barriers to communication noted, The patient speaks fluent Malay, Speaks appropriately for age. - Family history: Not pertinent. - : The pt / caregiver states he / she is not on anticoagulants. Home medication list is obtained from the patient. - Exposure Risk Screening:: None identified. Screenin:25 Screening information is obtained from the patient. Fall risk: No risks identified. js13 Assistance ADL's: requires no assistance with activities of daily living. Abuse/DV Screen: The patient / caregiver reports he/she is: not in a situation that causes fear, pain or injury. Nutritional screening: No deficits noted. Advance Directives: There is no active DNR order. home support is adequate. Vital Signs: 11:56 BP 175 / 88 RA Sitting (auto/reg); Pulse 82; Resp 18; Temp 96.9; Pulse Ox 96% on R/A; jrd Weight 100.24 kg (R); Height 5 ft. 4 in. (162.56 cm) (R); Pain 10/10; 11:56 Body Mass Index 37.93 (100.24 kg, 162.56 cm) [facility] Vitals: 11:56 Log In Time: March 30, 2016 at 11:45. d ED Course: 11:55 Patient visited by Afshin Cortes PCA. jrd 11:55 Patient moved to Waiting jrd 11:56 No Pcp is Private Physician. jrd 11:57 Patient visited by Afshin Cortes PCA. jrd 11:57 Patient moved to Pre RCE jrd 12:03 Triage Initiated pml 12:05 Patient visited by Huyen Dowd RN. pml 12:11 Patient moved to Triage 1 ar3 12:15 Jesus Guerra FNP is PHCP. ke 12:15 Patient visited by Jesus Guerra FNP. ke 12:15 Patient visited by Jesus Guerra FNP. ke 12:23 [facility] is Referral Physician. ke 12:25 The patient / caregiver is instructed regarding the plan of care and ED course. js13 12:25 No IV's were initiated during this patient's visit. No procedures done that require js13 assistance. 13:11 [facility] [place] was scanned into [employer] and attached to record. lg 14:58 T-Sheet-- Draft Copy was scanned into [employer] and attached to record. gb Order Results: There are currently no results for this order. Outcome: 12:24 Discharge ordered by Provider. ke 12:25 Discharge Assessment: Patient awake, alert and oriented x 3. No cognitive and/or js13 functional deficits noted. Patient verbalized understanding of disposition instructions. patient administered narcotics - no. The following High Risk Discharge criteria are identified: None. Discharged to home ambulatory. Condition: stable. Discharge instructions given to patient, Instructed on discharge instructions, follow up and referral plans. medication usage, Demonstrated understanding of instructions, medications, Pt was receptive of discharge instructions/ teaching. No special radiology studies were completed. Property :Personal belongings accompany Pt. 12:27 Prescriptions given X 2. js13 12:28 Patient left the ED. js13 Signatures: Latasha Hicks, Reg Reg gb Raymond Jolly, Reg Reg lg Jesus Guerra, GRIP ASSEMBLER GRIP ASSEMBLER Cande Conde, HEALTH LEAD HEALTH LEAD ar3 Huyen DowdRN RN Katherine Guerrier RN RN js13 Afshin Cortes, HEALTH LEAD HEALTH LEAD jrd Chart Complete MTDD
--- NOTE | 2016-04-01 13:30 | EDDOCDS ---
Physician Documentation [facility] Name: Jackelin Galindo Age: 46 yrs Sex: Female : 1970 Arrival Date: 03/30/2016 Time: 11:53 Bed Triage 1 Private MD: No Pcp Disposition: 03/30/16 12:24 Discharged to Home/Self Care. Impression: Radiculopathy, lumbar region. - Condition is Stable. - Discharge Instructions: Lumbosacral Radiculopathy, Back Exercises, Atop-br-Gptl. - Prescriptions for Ibuprofen 600 mg Oral Tablet - take 1 tablet by ORAL route every 6 hours As needed take with food; 30 tablet. Cyclobenzaprine 10 mg Oral Tablet - take 1 tablet by ORAL route 3 times per day As needed; 15 tablet. - Medication Reconciliation, Local Pharmacy Hours form. - [facility] up: [facility]; When: Call to arrange an appointment; Reason: Recheck today's complaints, Continuance of care. - Problem is an ongoing problem. - Symptoms are unchanged. Historical: - Allergies: no known allergies; - Home Meds: 1. metformin 1,000 mg Oral tr24 1 tab twice a day 2. aspirin 81 mg Oral TbEC 1 tab once daily 3. lisinopril 5 mg Oral tab 1 tab once daily - PMHx: Diabetes - NIDDM: controlled; Hypertension; - PSHx: none; - Social history: Smoking status: Patient states was never smoker of tobacco. No barriers to communication noted, The patient speaks fluent Nigerian, Speaks appropriately for age. - Family history: Not pertinent. - : The pt / caregiver states he / she is not on anticoagulants. Home medication list is obtained from the patient. - Exposure Risk Screening:: None identified. 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 4 in. (162.56 cm) (R); Pain 10/10; 11:56 Body Mass Index 37.93 (100.24 kg, 162.56 cm) jrd MDM: 13:11 [facility] Payment Agreement was scanned into [employer] and attached to record. lg 14:58 T-Sheet-- Draft Copy was scanned into [employer] and attached to record. gb Signatures: Latasha Hicks, Reg Reg gb Raymond Jolly, Reg Reg lg Jesus Guerra, CHARGING PLUG PLACER CHARGING PLUG PLACER Huyen EricksonRN RN Katherine Guerrier RN RN js13 The chart was reviewed and I authenticate all verbal orders and agree with the evaluation and treatment provided.Attachments: 13:11 [facility] Payment Agreement lg 14:58 T-Sheet-- Draft Copy gb Chart Complete MTDD
--- NOTE | 2016-04-01 13:30 | EDDOCDS ---
Physician Documentation [facility] Name: Jackelin Galindo Age: 46 yrs Sex: Female : 1970 Arrival Date: 03/30/2016 Time: 11:53 Bed Triage 1 Private MD: No Pcp Disposition: 03/30/16 12:24 Discharged to Home/Self Care. Impression: Radiculopathy, lumbar region. - Condition is Stable. - Discharge Instructions: Lumbosacral Radiculopathy, Back Exercises, [id number]. - Prescriptions for Ibuprofen 600 mg Oral Tablet - take 1 tablet by ORAL route every 6 hours As needed take with food; 30 tablet. Cyclobenzaprine 10 mg Oral Tablet - take 1 tablet by ORAL route 3 times per day As needed; 15 tablet. - Medication Reconciliation, Local Pharmacy Hours form. - Follow up: [facility]; When: Call to arrange an appointment; Reason: Recheck today's complaints, Continuance of care. - Problem is an ongoing problem. - Symptoms are unchanged. Historical: - Allergies: no known allergies; - Home Meds: 1. metformin 1,000 mg Oral tr24 1 tab twice a day 2. aspirin 81 mg Oral TbEC 1 tab once daily 3. lisinopril 5 mg Oral tab 1 tab once daily - PMHx: Diabetes - NIDDM: controlled; Hypertension; - PSHx: none; - Social history: Smoking status: Patient states was never smoker of tobacco. No barriers to communication noted, The patient speaks fluent Qatari, Speaks appropriately for age. - Family history: Not pertinent. - : The pt / caregiver states he / she is not on anticoagulants. Home medication list is obtained from the patient. - Exposure Risk Screening:: None identified. 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 4 in. (162.56 cm) (R); Pain 10/10; 11:56 Body Mass Index 37.93 (100.24 kg, 162.56 cm) jrd MDM: 13:11 [facility] Payment Agreement was scanned into [employer] and attached to record. lg 14:58 T-Sheet-- Draft Copy was scanned into [employer] and attached to record. gb Signatures: Latasha Hicks, Reg Reg gb Raymond Jolly, Reg Reg lg Jesus Guerra, VARNISHER APPRENTICE VARNISHER APPRENTICE Huyen EricksonRN RN Katherine Guerrier RN RN js13 The chart was reviewed and I authenticate all verbal orders and agree with the evaluation and treatment provided.Attachments: 13:11 [facility] Payment Agreement lg 14:58 T-Sheet-- Draft Copy gb Chart Complete MTDD
== END 2016-03-30 12:28 | disposition home or self-care (01) ==
LOC: M ED 11:53
DX: M54.16 Radiculopathy, lumbar region (principal); E11.9 Type 2 diabetes mellitus without complications; I10 Essential (primary) hypertension; Z79.84 Long term (current) use of oral hypoglycemic drugs; Z79.82 Long term (current) use of aspirin; Z79.899 Other long term (current) drug therapy

== ENCOUNTER 2016-06-15 17:51 | Emergency (ER) | payer OTHER ==
[~2016-06-15] VITALS: Ht 162.6 cm; Wt 100.2 kg
[2016-06-15] MEDS ORDERED: NORCO, ANEXSIA 5/325MG TABLET (HYDROcodone/ACETAMINOPHEN) PO ONE (19:30)
[2016-06-15 20:27] VITALS: BP 150/98
--- NOTE | 2016-06-16 01:21 | REP ---
Clinical: Trauma. Fall. Technique: AP, lateral, bilateral oblique and sunrise views of the left knee. Findings: Mild arthritic degenerative changes include increased sclerosis to the tibial plateau, cortical irregularities involving the femoral condyles and proximal tibia, spurring of the tibial spines as well as fraying along the anterior patella, increased sclerosis along the posterior patellar margin and mildly decreased patellofemoral joint space. Anterior swelling is suggested. No acute fracture or dislocation. No definite effusion. Impression: Mild arthritic degenerative changes. Anterior swelling. No acute fracture dislocation appreciated. Signed by Qasim Bang MD 06/16/2016 01:13 A
== END 2016-06-15 21:03 | disposition home or self-care (01) ==
LOC: M ED 20:44
DX: S83.422A Sprain of lateral collateral ligament of left knee, initial encounter (principal); X50.9XXA Other and unspecified overexertion or strenuous movements or postures, initial encounter; Y92.019 Unspecified place in single-family (private) house as the place of occurrence of the external cause; Y93.01 Activity, walking, marching and hiking; Y99.8 Other external cause status; M17.12 Unilateral primary osteoarthritis, left knee; E11.9 Type 2 diabetes mellitus without complications; K21.9 Gastro-esophageal reflux disease without esophagitis; I10 Essential (primary) hypertension; Z79.82 Long term (current) use of aspirin; Z79.84 Long term (current) use of oral hypoglycemic drugs; Z79.899 Other long term (current) drug therapy

== ENCOUNTER 2016-08-30 16:48 | Emergency (ER) | payer MEDICAID, OTHER ==
[~2016-08-30] VITALS: Ht 160 cm; Wt 101.9 kg
[2016-08-30] MEDS ORDERED: IBUP-1022 PO (16:59)
[2016-08-30] MEDS ORDERED: KETOROLAC 30 MG/ML VIAL (J1885) IM ONE (19:15)
[2016-08-30 19:59] LABS: ANION GAP 9 MEQ/L (8-16); BLOOD UREA NITROGEN 11 MG/DL (7-18); CALCIUM LEVEL 8.9 MG/DL (8.5-10.1); CARBON DIOXIDE LEVEL 23 MEQ/L (21-32); CHLORIDE LEVEL 102 MEQ/L (98-107); CREATININE FOR GFR 0.61 MG/DL (0.55-1.02); GLOMERULAR FILTRATION RATE > 60.0 (>58); GLUCOSE, FASTING 298 MG/DL (70-105); POTASSIUM SERUM 4.4 MEQ/L (3.5-5.1); SODIUM LEVEL 134 MEQ/L (136-145)
[2016-08-30 20:39] VITALS: BP 172/84
[2016-08-30] MEDS ORDERED: LISI10TA4 PO (20:45)
[2016-08-30] MEDS ORDERED: CYCL10TA PO (20:45)
[2016-08-30] MEDS ORDERED: NAPR500T PO (20:45)
--- NOTE | 2016-08-31 01:08 | REP ---
Clinical: Radiculopathy and right-sided pain. Technique: AP, lateral, bilateral oblique and coned-down views. Comparison: 04/08/2013. Findings: Mild levoconvex scoliosis centered at L2-3 level remains essentially unchanged. Marginal and predominately right-sided multilevel degenerative changes include osteophytes, endplate sclerosis and asymmetric disc space narrowing along with hypertrophic facet changes. Lordosis in the lateral plane is maintained. There is no evidence for acute fracture / compression injury or subluxation. Chronic spondylolysis at L5 cannot be excluded. Impression: Mild/moderate multilevel degenerative changes. Signed by Qasim Bang MD 08/31/2016 12:59 A
== END 2016-08-30 20:57 | disposition home or self-care (01) ==
LOC: M ED 16:48
DX: M54.31 Sciatica, right side (principal); M41.9 Scoliosis, unspecified; I10 Essential (primary) hypertension; Z91.14 Patient's other noncompliance with medication regimen; Z79.82 Long term (current) use of aspirin; Z79.899 Other long term (current) drug therapy; Z79.84 Long term (current) use of oral hypoglycemic drugs
CPT/HCPCS: 72110; 80048; 96372; 99282; J1885; J3360

== ENCOUNTER 2016-10-26 18:21 | Emergency (ER) | payer OTHER ==
[~2016-10-26] VITALS: Ht 162.6 cm; Wt 100.0 kg
[~2016-10-26 18:21] MED LIST changes: +CYCL10TA PO; +IBUP-1022 PO; +LISI10TA4 PO; +NAPR500T PO
[2016-10-26 18:22] VITALS: BP 181/93
== END 2016-10-26 20:00 | disposition left against medical advice (07) ==
LOC: M ED 18:21
DX: M54.9 Dorsalgia, unspecified (principal); Z53.29 Procedure and treatment not carried out because of patient's decision for other reasons

== ENCOUNTER 2016-12-29 13:36 | Emergency (ER) | payer OTHER ==
[~2016-12-29] VITALS: Ht 162.6 cm; Wt 104.1 kg
[2016-12-29 13:36] VITALS: BP 193/99
[2016-12-29] MEDS ORDERED: LISI-538 (13:48)
--- NOTE | 2016-12-29 14:19 | REP ---
Clinical: Trauma. Crush injury Technique: AP, lateral, bilateral oblique views right foot . Findings: The osseous structures and joint spaces are intact and normal. There is no evidence for acute fracture or dislocation. Surrounding soft tissues are unremarkable. No subcutaneous emphysema or radiodense foreign body. Impression: Normal right foot series. No definite acute fracture or dislocation. Signed by Qasim Bang MD 12/29/2016 02:10 P
== END 2016-12-29 16:02 | disposition home or self-care (01) ==
LOC: M ED 13:36
DX: S90.31XA Contusion of right foot, initial encounter (principal); W20.8XXA Other cause of strike by thrown, projected or falling object, initial encounter; Y92.099 Unspecified place in other non-institutional residence as the place of occurrence of the external cause; Y93.9 Activity, unspecified; Y99.9 Unspecified external cause status; Z79.899 Other long term (current) drug therapy

== ENCOUNTER 2017-02-28 16:47 | Emergency (ER) | payer OTHER ==
[2017-02-28] MEDS: CYCLOBENZAPRINE 10 MG TAB PO (18:27)
[2017-02-28] MEDS: KETOROLAC 60 MG/2 ML VIAL (J1885) IM (18:27)
== END 2017-02-28 19:19 | disposition home or self-care (01) ==
LOC: M ED 16:47
DX: M54.41 Lumbago with sciatica, right side (principal); G89.29 Other chronic pain; E11.9 Type 2 diabetes mellitus without complications; I10 Essential (primary) hypertension; K21.9 Gastro-esophageal reflux disease without esophagitis; Z79.899 Other long term (current) drug therapy
CPT/HCPCS: J1885

== ENCOUNTER → 2017-03-13 | Outpatient (REF) | payer OTHER ==
[2017-03-13 22:07] LABS: INFLUENZA A AMPLIFICATION NEGATIVE (NEGATIVE); INFLUENZA B AMPLIFICATION NEGATIVE (NEGATIVE); RSV AMPLIFICATION NEGATIVE (NEGATIVE)
== END ==
LOC: M LAB REF 11:19
DX: J11.1 Influenza due to unidentified influenza virus with other respiratory manifestations (principal)

== ENCOUNTER 2017-04-24 04:18 | Emergency (ER) | payer OTHER ==
[2017-04-24] MEDS: MORPHINE 4 MG/ML 1ML VIAL (J2270) IV (06:21)
[2017-04-24] MEDS: NS 1,000 ML IV (06:21)
[2017-04-24] MEDS: METOCLOPRAMIDE INJ 10MG/2ML VIAL (J2765) IV (06:22)
[2017-04-24] MEDS: GASTROGRAFIN SOLUTION 30ML PO ×2 (06:28→07:00)
[2017-04-24 06:40] LABS: BASO % 0.2 % (0.0-1.0); EOS # 0.1 10^3/uL (0.0-0.50); EOS % 0.4 % (0.0-3.0); HEMATOCRIT 41.7 % (36.0-47.0); HEMOGLOBIN 14.3 g/dl (12.0-16.0); IMMATURE GRANULOCYTE % 0.4 % (0-3.0); LYMPH # 1.4 10^3/uL (1.5-4.5); LYMPH % 9.8 % (24.0-44.0); MEAN CORPUSCULAR HEMOGLOBIN 27.8 pg (27.0-33.0); MEAN CORPUSCULAR HGB CONC 34.3 g/dl (32.0-36.5); MONO # 0.9 10^3/uL (0.0-0.8); MONO % 6.1 % (0.0-5.0); NEUTROPHILS # 12.2 10^3/uL (1.8-7.7); NEUTROPHILS % 83.1 % (36.0-66.0); PLATELET COUNT, AUTOMATED 254 10^3/uL (150-450); RED BLOOD COUNT 5.15 10^6/uL (4.00-5.40); RED CELL DISTRIBUTION WIDTH 12.8 % (11.5-14.5); WHITE BLOOD COUNT 14.6 10^3/uL (4.0-10.0)
[2017-04-24 06:52] LABS: APPEARANCE, URINE CLEAR (CLEAR); BACTERIA, URINE AUTO NEGATIVE (NEGATIVE); BILIRUBIN, URINE AUTO NEGATIVE (NEGATIVE); BLOOD, URINE BLOOD NEGATIVE (NEGATIVE); COLOR, URINE YELLOW (YELLOW); GLUCOSE, URINE (UA) AUTO 3+ mg/dL (NEGATIVE); KETONE, URINE AUTO 1+ mg/dL (NEGATIVE); LEUKOCYTE ESTERASE, URINE AUTO NEGATIVE (NEGATIVE); MUCUS, URINE SMALL (NEGATIVE); NITRITE, URINE AUTO NEGATIVE (NEGATIVE); PROTEIN, URINE AUTO NEGATIVE (NEGATIVE); RBC, URINE AUTO 2 /HPF (0-3); SPECIFIC GRAVITY URINE AUTO 1.038 (1.002-1.035); SQUAMOUS EPITHELIAL CELL UR AU 0 /HPF (0-6); UROBILINOGEN, URINE AUTO 0.2 mg/dL (0.0-2.0); WBC, URINE AUTO 2 /HPF (0-3)
[2017-04-24 07:02] LABS: ALBUMIN 3.2 GM/DL (3.2-5.2); ALBUMIN/GLOBULIN RATIO 0.86 (1.00-1.93); ALKALINE PHOSPHATASE 75 U/L (45-117); ALT/SGPT 26 U/L (12-78); ANION GAP 10 MEQ/L (8-16); AST/SGOT 16 U/L (7-37); BILIRUBIN,DIRECT 0.2 MG/DL (0.0-0.2); BILIRUBIN,TOTAL 0.7 MG/DL (0.2-1.0); BLOOD UREA NITROGEN 16 MG/DL (7-18); CALCIUM LEVEL 8.7 MG/DL (8.5-10.1); CARBON DIOXIDE LEVEL 25 MEQ/L (21-32); CHLORIDE LEVEL 103 MEQ/L (98-107); CREATININE FOR GFR 0.56 MG/DL (0.55-1.30); GLOMERULAR FILTRATION RATE > 60.0 (>58); GLUCOSE, FASTING 316 MG/DL (70-100); LIPASE 68 U/L (73-393); POTASSIUM SERUM 4.3 MEQ/L (3.5-5.1); SODIUM LEVEL 138 MEQ/L (136-145); TOTAL PROTEIN 6.9 GM/DL (6.4-8.2)
[2017-04-24] MEDS ORDERED: ISOVUE-370 76% 100ML VIAL (Q9967) As Ordered (07:53)
== END 2017-04-24 09:36 | disposition home or self-care (01) ==
LOC: M ED 04:18
DX: R10.9 Unspecified abdominal pain (principal); N83.201 Unspecified ovarian cyst, right side; E11.9 Type 2 diabetes mellitus without complications; K43.9 Ventral hernia without obstruction or gangrene; I10 Essential (primary) hypertension; K21.9 Gastro-esophageal reflux disease without esophagitis; Z79.899 Other long term (current) drug therapy; Z98.890 Other specified postprocedural states
CPT/HCPCS: J2270

== ENCOUNTER → 2017-05-24 | Outpatient (REF) | payer OTHER ==
[2017-05-24 13:31] LABS: ALBUMIN 3.4 GM/DL (3.2-5.2); ALBUMIN/GLOBULIN RATIO 0.81 (1.00-1.93); ALKALINE PHOSPHATASE 74 U/L (45-117); ALT/SGPT 26 U/L (12-78); ANION GAP 4 MEQ/L (8-16); AST/SGOT 17 U/L (7-37); BILIRUBIN,TOTAL 0.5 MG/DL (0.2-1.0); BLOOD UREA NITROGEN 14 MG/DL (7-18); CALCIUM LEVEL 8.7 MG/DL (8.5-10.1); CARBON DIOXIDE LEVEL 29 MEQ/L (21-32); CHLORIDE LEVEL 106 MEQ/L (98-107); CREATININE FOR GFR 0.63 MG/DL (0.55-1.30); GLOMERULAR FILTRATION RATE > 60.0 (>58); GLUCOSE, FASTING 259 MG/DL (70-100); POTASSIUM SERUM 4.5 MEQ/L (3.5-5.1); SODIUM LEVEL 139 MEQ/L (136-145); TOTAL PROTEIN 7.6 GM/DL (6.4-8.2)
[2017-05-24 13:38] LABS: BASO # 0.1 10^3/uL (0.0-0.2); BASO % 0.5 % (0.0-1.0); EOS # 0.2 10^3/uL (0.0-0.50); EOS % 1.9 % (0.0-3.0); HEMATOCRIT 43.1 % (36.0-47.0); HEMOGLOBIN 14.4 g/dl (12.0-15.5); IMMATURE GRANULOCYTE % 0.4 % (0-3.0); LYMPH # 3.1 10^3/uL (1.5-4.5); LYMPH % 31.7 % (24.0-44.0); MEAN CORPUSCULAR HEMOGLOBIN 27.3 pg (27.0-33.0); MEAN CORPUSCULAR HGB CONC 33.4 g/dl (32.0-36.5); MEAN CORPUSCULAR VOLUME 81.6 fl (80.0-96.0); MONO # 0.7 10^3/uL (0.0-0.8); MONO % 7.3 % (0.0-5.0); NEUTROPHILS # 5.6 10^3/uL (1.8-7.7); NEUTROPHILS % 58.2 % (36.0-66.0); RED BLOOD COUNT 5.28 10^6/uL (4.00-5.40); RED CELL DISTRIBUTION WIDTH 13.2 % (11.5-14.5); WHITE BLOOD COUNT 9.7 10^3/uL (4.0-10.0)
[2017-05-24 13:57] LABS: ESTIMATED AVERAGE GLUCOSE 255 MG/DL (60-110); HEMOGLOBIN A1c 10.5 %
[2017-05-24 13:59] LABS: POS COUNT POS FLAG
[2017-05-24 14:01] LABS: PLATELET COUNT, AUTOMATED 119 10^3/uL (150-450)
== END ==
LOC: M LAB REF 11:57
DX: E11.9 Type 2 diabetes mellitus without complications (principal)

== ENCOUNTER → 2017-09-10 | Outpatient (REF) | payer OTHER ==
[2017-09-10 13:50] LABS: BASO # 0.1 10^3/uL (0.0-0.2); BASO % 0.5 % (0.0-1.0); EOS # 0.1 10^3/uL (0.0-0.50); EOS % 1.4 % (0.0-3.0); HEMATOCRIT 44.3 % (36.0-47.0); HEMOGLOBIN 14.8 g/dl (12.0-15.5); IMMATURE GRANULOCYTE % 0.3 % (0-3.0); LYMPH % 29.9 % (24.0-44.0); MEAN CORPUSCULAR HEMOGLOBIN 27.8 pg (27.0-33.0); MEAN CORPUSCULAR HGB CONC 33.4 g/dl (32.0-36.5); MEAN CORPUSCULAR VOLUME 83.3 fl (80.0-96.0); MONO # 0.8 10^3/uL (0.0-0.8); MONO % 7.7 % (0.0-5.0); NEUTROPHILS # 5.9 10^3/uL (1.8-7.7); NEUTROPHILS % 60.2 % (36.0-66.0); PLATELET COUNT, AUTOMATED 275 10^3/uL (150-450); RED BLOOD COUNT 5.32 10^6/uL (4.00-5.40); RED CELL DISTRIBUTION WIDTH 12.7 % (11.5-14.5); WHITE BLOOD COUNT 9.9 10^3/uL (4.0-10.0)
[2017-09-10 14:07] LABS: MALB URINE SIEMENS 88.1 MG/L; MAU/CREAT RATIO 41.1 MCG/MG (0.0-30.0)
[2017-09-10 14:25] LABS: ALBUMIN 3.2 GM/DL (3.2-5.2); ALBUMIN/GLOBULIN RATIO 0.78 (1.00-1.93); ALKALINE PHOSPHATASE 82 U/L (45-117); ALT/SGPT 27 U/L (12-78); ANION GAP 8 MEQ/L (8-16); AST/SGOT 15 U/L (7-37); BILIRUBIN,TOTAL 0.5 MG/DL (0.2-1.0); BLOOD UREA NITROGEN 14 MG/DL (7-18); CALCIUM LEVEL 8.5 MG/DL (8.5-10.1); CARBON DIOXIDE LEVEL 28 MEQ/L (21-32); CHLORIDE LEVEL 104 MEQ/L (98-107); CHOLESTEROL LEVEL 132 MG/DL (<200); CHOLESTEROL RISK RATIO 2.095 (<5); CREATININE FOR GFR 0.65 MG/DL (0.55-1.30); GLOMERULAR FILTRATION RATE > 60.0 (>58); GLUCOSE, FASTING 246 MG/DL (70-100); HDL CHOLESTEROL 63 MG/DL (>40); NON-HDL-C 69 MG/DL; POTASSIUM SERUM 4.1 MEQ/L (3.5-5.1); SODIUM LEVEL 140 MEQ/L (136-145); THYROID STIMULATING HORMONE 0.792 uIU/ML (0.358-3.740); TOTAL PROTEIN 7.3 GM/DL (6.4-8.2); TRIGLYCERIDES LEVEL 50 MG/DL (<150)
[2017-09-10 14:37] LABS: ESTIMATED AVERAGE GLUCOSE 249 MG/DL (60-110); HEMOGLOBIN A1c 10.3 %
== END ==
LOC: M LAB REF 13:08
DX: E11.9 Type 2 diabetes mellitus without complications (principal)

== ENCOUNTER 2017-09-20 11:16 | Emergency (ER) | payer MEDICAID, OTHER ==
[2017-09-20] MEDS: NORCO, ANEXSIA 5/325MG TABLET (HYDROcodone/ACETAMINOPHEN) PO (12:18)
[2017-09-20] MEDS: METHOCARBAMOL 500 MG TAB PO (12:19)
== END 2017-09-20 12:46 | disposition home or self-care (01) ==
LOC: M ED 11:16
DX: M54.41 Lumbago with sciatica, right side (principal); G89.29 Other chronic pain; I10 Essential (primary) hypertension; E11.9 Type 2 diabetes mellitus without complications; K21.9 Gastro-esophageal reflux disease without esophagitis; Z82.49 Family history of ischemic heart disease and other diseases of the circulatory system; Z79.84 Long term (current) use of oral hypoglycemic drugs; Z79.899 Other long term (current) drug therapy
CPT/HCPCS: 81025

== ENCOUNTER → 2017-11-16 | Outpatient (REF) | payer OTHER | LOC: M SFHCPLAZ 17:24 | DX: D23.5 Other benign neoplasm of skin of trunk (principal); D23.30 Other benign neoplasm of skin of unspecified part of face ==

== ENCOUNTER 2017-11-28 17:28 | Emergency (ER) | payer OTHER ==
[2017-11-28] MEDS: hydroCHLOROthiazide 25 MG TAB PO (18:06)
[2017-11-28] MEDS: traMADol 50 MG TAB PO (18:07)
== END 2017-11-28 18:22 | disposition home or self-care (01) ==
LOC: M ED 17:28
DX: S21.201A Unspecified open wound of right back wall of thorax without penetration into thoracic cavity, initial encounter (principal); X58.XXXA Exposure to other specified factors, initial encounter; Y92.89 Other specified places as the place of occurrence of the external cause; I10 Essential (primary) hypertension; K21.9 Gastro-esophageal reflux disease without esophagitis; Z79.899 Other long term (current) drug therapy
CPT/HCPCS: 99283

== ENCOUNTER → 2017-12-21 | Outpatient (CLI) | payer OTHER | LOC: M RAD 14:04 | DX: M51.26 Other intervertebral disc displacement, lumbar region (principal); M51.27 Other intervertebral disc displacement, lumbosacral region | CPT/HCPCS: 72148 ==

== ENCOUNTER 2018-02-27 21:01 | Emergency (ER) | payer OTHER ==
[~2018-02-27] VITALS: Ht 162.6 cm; Wt 96.4 kg
[2018-02-27 21:01] VITALS: BP 213/91
[~2018-02-27 21:01] MED LIST changes: +ACET-683 PO; +IBUP80TA PO; +LISI-538; +METF500T13 PO; +NAPR-50 PO; -NAPR500T PO; +NORCOTAB PO; +RANI15TA PO; +ROBA500T PO; +TRAM50TA2 PO
[2018-02-27] MEDS ORDERED: NAPR-885 PO (22:07)
[2018-02-27] MEDS ORDERED: NAPROXEN 250 MG TAB PO ONE (22:15)
--- NOTE | 2018-02-28 03:55 | REP ---
Clinical: Trauma. Technique: AP, lateral, bilateral oblique views right foot . Findings: The osseous structures and joint spaces are intact and normal. There is no evidence for acute fracture or dislocation. Surrounding soft tissues are unremarkable. No subcutaneous emphysema or radiodense foreign body. Impression: Normal right foot series . No acute fracture or dislocation. Electronically Signed by Qasim Bang MD 02/28/2018 03:45 A
== END 2018-02-27 22:22 | disposition home or self-care (01) ==
LOC: M ED 21:01
DX: S93.601A Unspecified sprain of right foot, initial encounter (principal); X58.XXXA Exposure to other specified factors, initial encounter; Y92.018 Other place in single-family (private) house as the place of occurrence of the external cause; Y93.83 Activity, rough housing and horseplay; E11.9 Type 2 diabetes mellitus without complications; K21.9 Gastro-esophageal reflux disease without esophagitis; Z79.899 Other long term (current) drug therapy; Z79.84 Long term (current) use of oral hypoglycemic drugs

== ENCOUNTER → 2018-03-31 | Outpatient (REF) | payer OTHER, MEDICAID ==
[~2018-03-31] MED LIST changes: +NAPR-885 PO
[2018-03-31 12:44] LABS: ALBUMIN 3.2 GM/DL (3.2-5.2); ALT/SGPT 23 U/L (12-78); BILIRUBIN,TOTAL 0.5 MG/DL (0.2-1.0); BLOOD UREA NITROGEN 14 MG/DL (7-18); CALCIUM LEVEL 8.2 MG/DL (8.5-10.1); CARBON DIOXIDE LEVEL 24 MEQ/L (21-32); CHLORIDE LEVEL 103 MEQ/L (98-107); CREATININE FOR GFR 0.69 MG/DL (0.55-1.30); GLOMERULAR FILTRATION RATE > 60.0 (>58); GLUCOSE, FASTING 373 MG/DL (70-100); POTASSIUM SERUM 4.1 MEQ/L (3.5-5.1); SODIUM LEVEL 136 MEQ/L (136-145); TOTAL PROTEIN 7.1 GM/DL (6.4-8.2)
[2018-03-31 13:32] LABS: MALB URINE SIEMENS 45.5 MG/L; MAU/CREAT RATIO 39.2 MCG/MG (0.0-30.0)
== END ==
LOC: M LAB REF 12:14
PROVIDERS: ATTEND Nurse Practitioner Adult Health
DX: E11.9 Type 2 diabetes mellitus without complications (principal)

== ENCOUNTER → 2018-04-14 | Outpatient (REF) | payer OTHER ==
[2018-04-14 12:57] LABS: INFLUENZA A AMPLIFICATION NEGATIVE (NEGATIVE); INFLUENZA B AMPLIFICATION NEGATIVE (NEGATIVE)
== END ==
LOC: M LAB REF 12:02
PROVIDERS: ATTEND Physician Assistant
DX: J11.1 Influenza due to unidentified influenza virus with other respiratory manifestations (principal)

== ENCOUNTER 2018-09-17 20:43 | Emergency (ER) | payer OTHER ==
[~2018-09-17 20:43] MED LIST changes: -/PANT40TA OR; +HYDR-3715 PO; -NAPR-50 PO; +NAPR-837 PO; -NORCOTAB PO; +PROT1TAB2 OR
[2018-09-17] MEDS ORDERED: KETOROLAC 60 MG/2 ML VIAL (J1885) IM ONE (21:30)
--- NOTE | 2018-09-17 22:05 | REPVR ---
EXAM: CT Head Without Contrast EXAM DATE/TIME: 09/17/2018 9:26 PM CLINICAL HISTORY: 48 years old, female; Injury or trauma; Fall; Initial encounter; Blunt trauma (contusions or hematomas); Additional info: Tr TECHNIQUE: Imaging protocol: Computed tomography images of the head without contrast. Radiation optimization: All CT scans at this facility use at least one of these dose optimization techniques: automated exposure control; mA and/or kV adjustment per patient size (includes targeted exams where dose is matched to clinical indication); or iterative reconstruction. COMPARISON: No relevant prior studies available. FINDINGS: Brain: Unremarkable. No hemorrhage. No significant white matter disease. No edema. Ventricles: Unremarkable. No ventriculomegaly. Bones/joints: Unremarkable. No acute fracture. Sinuses: Visualized sinuses are unremarkable. No fluid levels. Mastoid air cells: Visualized mastoid air cells are well aerated. No mastoid effusion. Soft tissues: Unremarkable. IMPRESSION: No acute abnormality. Electronically signed by: Leoncio Sims On 09/17/2018 22:05:02 PM
--- NOTE | 2018-09-17 22:10 | REPVR ---
EXAM: CT Cervical Spine Without Contrast EXAM DATE/TIME: 09/17/2018 9:26 PM CLINICAL HISTORY: 48 years old, female; Injury or trauma; Fall; Initial encounter; Blunt trauma; Additional info: Tr TECHNIQUE: Imaging protocol: Computed tomography images of the cervical spine without contrast. Coronal and sagittal reformatted images were created and reviewed. Radiation optimization: All CT scans at this facility use at least one of these dose optimization techniques: automated exposure control; mA and/or kV adjustment per patient size (includes targeted exams where dose is matched to clinical indication); or iterative reconstruction. COMPARISON: CR SPINE,CERV-3 VIEW TO CLEAR 06/09/2013 11:07 PM FINDINGS: Vertebrae: No acute fracture or subluxation is identified. Discs/Spinal canal/Neural foramina: Smooth ossification measuring 8 mm within the right C3-C4 neural foramen with narrowing of the foramen is unchanged compared to a prior CT scan of the neck performed on 05/12/2012. There are minimal degenerative changes throughout the cervical spine. Soft tissues: Unremarkable. Lungs: Lung apices are clear. IMPRESSION: No acute fracture or subluxation. Electronically signed by: Leoncio Sims On 09/17/2018 22:10:23 PM
--- NOTE | 2018-09-17 22:14 | REPVR ---
EXAM: CT Lumbar Spine Without Contrast EXAM DATE/TIME: 09/17/2018 9:26 PM CLINICAL HISTORY: 48 years old, female; Injury or trauma; Fall; Initial encounter; Blunt trauma (contusions or hematomas); Additional info: Tr TECHNIQUE: Imaging protocol: Computed tomography images of the lumbar spine without contrast. Coronal and sagittal reformatted images were created and reviewed. Radiation optimization: All CT scans at this facility use at least one of these dose optimization techniques: automated exposure control; mA and/or kV adjustment per patient size (includes targeted exams where dose is matched to clinical indication); or iterative reconstruction. COMPARISON: MRI-Spine, L.S. without con 12/21/2017 2:18 PM FINDINGS: Vertebrae: No fracture or subluxation. Scoliosis of the lumbar spine, apex to the left. Discs/Spinal canal/Neural foramina: Degenerative disc disease and facet arthrosis throughout the lumbar spine. No bony spinal stenosis. This examination is suboptimal for evaluation of intervertebral disc disease. If there is a concern for disc herniation then evaluation with MRI should be considered. Sacrum/coccyx: Mild degenerative changes within the sacroiliac joints. Soft tissues: Unremarkable. IMPRESSION: 1. No fracture or subluxation. 2. Degenerative spondylosis of the lumbar spine. Electronically signed by: Leoncio Sims On 09/17/2018 22:14:16 PM
--- NOTE | 2018-09-17 22:18 | REPVR ---
EXAM: CT Thoracic Spine Without Contrast EXAM DATE/TIME: 09/17/2018 9:26 PM CLINICAL HISTORY: 48 years old, female; Injury or trauma; Fall; Initial encounter; Blunt trauma (contusions or hematomas); Additional info: Tr TECHNIQUE: Imaging protocol: Computed tomography images of the thoracic spine without contrast. Coronal and sagittal reformatted images were created and reviewed. Radiation optimization: All CT scans at this facility use at least one of these dose optimization techniques: automated exposure control; mA and/or kV adjustment per patient size (includes targeted exams where dose is matched to clinical indication); or iterative reconstruction. COMPARISON: No relevant prior studies available. FINDINGS: Vertebrae: No fracture or subluxation. Discs/Spinal canal/Neural foramina: Mild degenerative disc disease throughout the thoracic spine. The intervertebral disc spaces and vertebral body heights are well-maintained. The facet joints are intact. No bony spinal stenosis. Soft tissues: No paraspinal hematoma. IMPRESSION: 1. Mild degenerative spondylosis of the thoracic spine. 2. No fracture or subluxation. Electronically signed by: Leoncio Sims On 09/17/2018 22:18:00 PM
--- NOTE | 2018-09-17 22:26 | REPVR ---
EXAM: CT Pelvis Without Contrast, Skeletal EXAM DATE/TIME: 09/17/2018 9:26 PM CLINICAL HISTORY: 48 years old, female; Injury or trauma; Fall; Initial encounter; Blunt trauma (contusions or hematomas); Bilateral; Hip; Additional info: Tr TECHNIQUE: Imaging protocol: Axial computed tomography images of the pelvis without intravenous contrast. Exam focused on the skeletal structures. Coronal and sagittal reformatted images were created and reviewed. Radiation optimization: All CT scans at this facility use at least one of these dose optimization techniques: automated exposure control; mA and/or kV adjustment per patient size (includes targeted exams where dose is matched to clinical indication); or iterative reconstruction. COMPARISON: CT ABD/PEL W/IV ORAL CONTRAS 04/24/2017 7:53 AM FINDINGS: Reproductive: There are 2 cysts, measuring 3.7 cm and 2.3 cm, versus a 6 cm diameter septated cyst within the right ovary. The findings represent a change compared to the prior CT exam performed on 04/24/2017. Nonemergent followup pelvic ultrasound evaluation in 6-12 weeks is recommended. The left adnexa and uterus are unremarkable. Intraperitoneal space: No pelvic ascites. Bones/joints: Mild degenerative arthrosis within both hips. The sacroiliac joints and pubic symphysis are intact. No acute fracture or osteonecrosis is identified. Soft tissues: 2.5 cm hernia containing fat at the midline of the anterior abdominal wall just above the umbilicus is unchanged. IMPRESSION: 1. No fracture. 2. Right ovarian cysts measuring 3.7 cm and 2.3 cm, versus a 6 cm diameter septated right ovarian cyst. Nonemergent followup pelvic ultrasound evaluation in 6-12 weeks is recommended. Electronically signed by: Leoncio Sims On 09/17/2018 22:26:21 PM
[2018-09-17 23:02] VITALS: BP 180/110
--- NOTE | 2018-09-24 20:41 | ED PDOC ---
Post-Departure Follow-Up dr parnell faxed formal report of ct pelvis for fu Brittany Wilson MD Sep 24, 2018 20:41
== END 2018-09-17 23:15 | disposition home or self-care (01) ==
LOC: M ED 20:43
DX: S29.9XXA Unspecified injury of thorax, initial encounter (principal); W10.8XXA Fall (on) (from) other stairs and steps, initial encounter; Y92.018 Other place in single-family (private) house as the place of occurrence of the external cause; E11.9 Type 2 diabetes mellitus without complications; I10 Essential (primary) hypertension; E66.9 Obesity, unspecified; Z79.899 Other long term (current) drug therapy; Z79.84 Long term (current) use of oral hypoglycemic drugs
CPT/HCPCS: 70450; 72125; 72128; 72131; 72192; 96372; 99284; J1885

== ENCOUNTER → 2018-10-13 | Outpatient (CLI) | payer OTHER ==
[2018-10-13 07:59] LABS: BASO % 0.5 % (0.0-1.0); EOS # 0.2 10^3/uL (0.0-0.5); EOS % 2.6 % (0.0-3.0); HEMATOCRIT 42.9 % (36.0-47.0); LYMPH # 2.6 10^3/uL (1.5-5.0); LYMPH % 32.3 % (24.0-44.0); MEAN CORPUSCULAR HEMOGLOBIN 27.5 pg (27.0-33.0); MEAN CORPUSCULAR HGB CONC 32.6 g/dl (32.0-36.5); MEAN CORPUSCULAR VOLUME 84.3 fl (80.0-96.0); MONO # 0.7 10^3/uL (0.0-0.8); MONO % 8.3 % (0.0-5.0); NEUTROPHILS # 4.5 10^3/uL (1.5-8.5); PLATELET COUNT, AUTOMATED 251 10^3/uL (150-450); RED BLOOD COUNT 5.09 10^6/uL (4.00-5.40)
[2018-10-13 09:25] LABS: ALBUMIN 3.1 GM/DL (3.2-5.2); ALT/SGPT 22 U/L (12-78); AMYLASE 47 U/L (25-115); BILIRUBIN,TOTAL 0.5 MG/DL (0.2-1.0); BLOOD UREA NITROGEN 17 MG/DL (7-18); CALCIUM LEVEL 8.8 MG/DL (8.5-10.1); CARBON DIOXIDE LEVEL 30 MEQ/L (21-32); CHLORIDE LEVEL 103 MEQ/L (98-107); CHOLESTEROL LEVEL 142 MG/DL (<200); CHOLESTEROL RISK RATIO 2.088 (<5); FREE T4 0.96 NG/DL (0.76-1.46); GLOMERULAR FILTRATION RATE > 60.0 (>58); GLUCOSE, FASTING 270 MG/DL (70-100); HDL CHOLESTEROL 68 MG/DL (>40); LDL CHOLESTEROL 65 MG/DL (<100); LIPASE 68 U/L (73-393); NON-HDL-C 74 MG/DL; POTASSIUM SERUM 4.9 MEQ/L (3.5-5.1); SODIUM LEVEL 138 MEQ/L (136-145); TOTAL PROTEIN 7.1 GM/DL (6.4-8.2); TRIGLYCERIDES LEVEL 45 MG/DL (<150)
[2018-10-13 09:46] LABS: HEMOGLOBIN A1c 9.9 %
== END ==
LOC: M LAB 07:32
PROVIDERS: ATTEND Nurse Practitioner Family
DX: Z00.01 Encounter for general adult medical examination with abnormal findings (principal)

== ENCOUNTER 2019-01-02 15:40 | Outpatient (RCR) | payer OTHER | END 2019-01-07 | LOC: M PT 15:40 | PROVIDERS: ATTEND Physician Assistant | DX: Z47.89 Encounter for other orthopedic aftercare (principal) ==

== ENCOUNTER 2019-01-11 16:25 | Outpatient (RCR) | payer OTHER | END 2019-02-07 | LOC: M PT 16:25 | PROVIDERS: ATTEND Physician Assistant | DX: M47.896 Other spondylosis, lumbar region (principal); M51.36 Other intervertebral disc degeneration, lumbar region; M51.26 Other intervertebral disc displacement, lumbar region; M48.061 Spinal stenosis, lumbar region without neurogenic claudication; M41.9 Scoliosis, unspecified; M54.2 Cervicalgia; R20.2 Paresthesia of skin ==

== ENCOUNTER 2019-03-03 18:14 | Emergency (ER) | payer OTHER ==
[~2019-03-03] VITALS: Ht 162.6 cm; Wt 94.6 kg
[~2019-03-03 18:14] MED LIST changes: -LISI-538; +LISI-538 PO
[2019-03-03] MEDS ORDERED: TRUL10IN SQ (18:25)
[2019-03-03] MEDS ORDERED: ALOG12.5 PO (18:25)
[2019-03-03 19:13] LABS: BASO # 0.1 10^3/uL (0.0-0.2); BASO % 0.4 % (0.0-1.0); EOS # 0.2 10^3/uL (0.0-0.5); EOS % 1.9 % (0.0-3.0); HEMATOCRIT 40.7 % (36.0-47.0); LYMPH # 3.9 10^3/uL (1.5-5.0); LYMPH % 30.8 % (24.0-44.0); MEAN CORPUSCULAR HGB CONC 31.9 g/dl (32.0-36.5); MEAN CORPUSCULAR VOLUME 84.4 fl (80.0-96.0); MONO % 7.7 % (0.0-5.0); NEUTROPHILS # 7.4 10^3/uL (1.5-8.5); NEUTROPHILS % 58.9 % (36.0-66.0); PLATELET COUNT, AUTOMATED 254 10^3/uL (150-450); RED BLOOD COUNT 4.82 10^6/uL (4.00-5.40); WHITE BLOOD COUNT 12.6 10^3/uL (4.0-10.0)
[2019-03-03] MEDS: MORPHINE 2 MG/ML 1ML VIAL (J2270) IV PRN ×2 (19:21→20:49)
[2019-03-03 19:35] LABS: ERYTHROCYTE SEDIMENTATION RATE 33 mm/hr (0-20)
[2019-03-03 19:43] LABS: HCG, SERUM QUALITATIVE NEGATIVE (NEGATIVE)
[2019-03-03 19:58] LABS: ALBUMIN 3.2 GM/DL (3.2-5.2); ALT/SGPT 18 U/L (12-78); BILIRUBIN,DIRECT 0.1 MG/DL (0.0-0.2); BILIRUBIN,TOTAL 0.3 MG/DL (0.2-1.0); BLOOD UREA NITROGEN 14 MG/DL (7-18); C REACTIVE PROTEIN QUANTITATIV 1.48 MG/DL (0.00-0.30); CALCIUM LEVEL 8.6 MG/DL (8.5-10.1); CARBON DIOXIDE LEVEL 27 MEQ/L (21-32); CHLORIDE LEVEL 109 MEQ/L (98-107); CK-MB VALUE MASS 1.6 NG/ML (<3.6); CPK CREATINE PHOSPHOKINASE 80 U/L (26-192); CREATININE FOR GFR 0.57 MG/DL (0.55-1.30); GLOMERULAR FILTRATION RATE > 60.0 (>58); GLUCOSE, FASTING 159 MG/DL (70-100); NT-PRO BNP 201 PG/ML (<125); POTASSIUM SERUM 3.7 MEQ/L (3.5-5.1); SODIUM LEVEL 142 MEQ/L (136-145); THYROID STIMULATING HORMONE 0.964 uIU/ML (0.358-3.740); TOTAL PROTEIN 7.4 GM/DL (6.4-8.2); TROPONIN I < 0.02 NG/ML (< 0.10)
--- NOTE | 2019-03-03 20:38 | ECGEPIP ---
[facility] [place] - ED Test Date: 2019-03-03 Pat Name: GURVINDER FLOWERS Department: Room: - Gender: Female Psychologist Private Practice: [facility] : 1970 Requested By: MARIBELL Zamarripa Order Number: [id number] Reading MD: Maribell Arenas Measurements Intervals [place] Rate: 76 P: 10 WA: 128 QRS: -32 QRSD: 102 T: 43 QT: 388 QTc: 436 Interpretive Statements SINUS RHYTHM MARKED LEFT AXIS DEVIATION PATTERN CONSISTENT WITH PULMONARY DISEASE VOLTAGE CRITERIA FOR LVH POSSIBLE SEPTAL MYOCARDIAL INFARCTION, OF INDETERMINATE AGE INCREASED RATE 02/22/16 Electronically Signed on 03-03-2019 20:38:40 EST by Maribell Arenas
[2019-03-03] MEDS ORDERED: KETOROLAC 30 MG/ML VIAL (J1885) IV ONE (21:00)
[2019-03-03] MEDS ORDERED: KETO10TAB PO (21:06)
[2019-03-03 22:12] VITALS: BP 175/91
--- NOTE | 2019-03-04 09:20 | REP ---
LEFT SHOULDER, COMPLETE: 03/03/2019. Clinical history: Chest pain. Findings: Three views show the AC joint slightly narrowed with small spurs inferiorly. Clavicle, ribs, scapula and humerus without a fracture. The external rotation view shows good range of motion. The internal rotation view shows a tiny calcific density over the greater tuberosity humeral head which could be a small focus of calcific tendonitis. There is no subluxation or dislocation of the humeral head on the glenoid. Impression: 1. Some mild AC joint arthritis and question of a tiny focus of calcium from calcific tendinopathy over the greater tuberosity humeral head. Electronically Signed by Bigg Wyman MD 03/04/2019 07:51 P
--- NOTE | 2019-03-04 09:21 | REP ---
AP PORTABLE CHEST: 03/03/2019. Clinical history: Chest pain. Comparison: 06/13/2010. Findings. The lungs are well inflated and clear. The heart not enlarged for portable technique. The aorta and airway intact. No widening of the mediastinum. Bones are unremarkable. No free air. Impression: 1. No acute cardiopulmonary change. Electronically Signed by Bigg Wyman MD 03/04/2019 07:51 P
== END 2019-03-03 22:14 | disposition home or self-care (01) ==
LOC: M ED 18:14
DX: M25.512 Pain in left shoulder (principal); R94.31 Abnormal electrocardiogram [ECG] [EKG]; M19.012 Primary osteoarthritis, left shoulder; I10 Essential (primary) hypertension; E11.9 Type 2 diabetes mellitus without complications; Z79.84 Long term (current) use of oral hypoglycemic drugs; Z79.899 Other long term (current) drug therapy
CPT/HCPCS: 71045; 73030; 80048; 80076; 82550; 82553; 83880; 84443; 84703; 85025; 85652; 86140; 93005; 93041; 94760; 96374; 96375; 99284; J1885; J2270

== ENCOUNTER → 2019-03-29 | Outpatient (REF) | payer OTHER, MEDICAID ==
[~2019-03-29] MED LIST changes: +ALOG12.5 PO; +KETO10TAB PO; +TRUL10IN SQ
[2019-03-29 14:05] LABS: BASO # 0.1 10^3/uL (0.0-0.2); BASO % 0.6 % (0.0-1.0); EOS # 0.2 10^3/uL (0.0-0.5); EOS % 2.1 % (0.0-3.0); HEMATOCRIT 44.3 % (36.0-47.0); HEMOGLOBIN 14.1 g/dl (12.0-15.5); LYMPH # 2.3 10^3/uL (1.5-5.0); LYMPH % 25.8 % (24.0-44.0); MEAN CORPUSCULAR HEMOGLOBIN 27.2 pg (27.0-33.0); MEAN CORPUSCULAR HGB CONC 31.8 g/dl (32.0-36.5); MEAN CORPUSCULAR VOLUME 85.5 fl (80.0-96.0); MONO # 0.6 10^3/uL (0.0-0.8); MONO % 6.7 % (0.0-5.0); NEUTROPHILS # 5.7 10^3/uL (1.5-8.5); NEUTROPHILS % 64.6 % (36.0-66.0); PLATELET COUNT, AUTOMATED 293 10^3/uL (150-450); RED BLOOD COUNT 5.18 10^6/uL (4.00-5.40); WHITE BLOOD COUNT 8.8 10^3/uL (4.0-10.0)
[2019-03-29 14:25] LABS: HEMOGLOBIN A1c 7.5 %
[2019-03-29 14:39] LABS: ALBUMIN 3.7 GM/DL (3.2-5.2); ALT/SGPT 74 U/L (12-78); BILIRUBIN,TOTAL 0.5 MG/DL (0.2-1.0); BLOOD UREA NITROGEN 12 MG/DL (7-18); CALCIUM LEVEL 9.3 MG/DL (8.5-10.1); CARBON DIOXIDE LEVEL 31 MEQ/L (21-32); CHLORIDE LEVEL 105 MEQ/L (98-107); CHOLESTEROL LEVEL 169 MG/DL (<200); CHOLESTEROL RISK RATIO 2.194 (<5); CREATININE FOR GFR 0.63 MG/DL (0.55-1.30); FREE T4 0.98 NG/DL (0.76-1.46); GLOMERULAR FILTRATION RATE > 60.0 (>58); GLUCOSE, FASTING 155 MG/DL (70-100); HDL CHOLESTEROL 77 MG/DL (>40); LDL CHOLESTEROL 82 MG/DL (<100); NON-HDL-C 92 MG/DL; POTASSIUM SERUM 4.1 MEQ/L (3.5-5.1); SODIUM LEVEL 138 MEQ/L (136-145); THYROID STIMULATING HORMONE 0.847 uIU/ML (0.358-3.740); TOTAL PROTEIN 8.2 GM/DL (6.4-8.2); TRIGLYCERIDES LEVEL 49 MG/DL (<150)
[2019-03-29 14:41] LABS: TOTAL 25(OH) VITAMIN D 22.5 NG/ML (30.0-100.0)
== END ==
LOC: M LAB REF 13:04
PROVIDERS: ATTEND Physician Assistant
DX: D72.829 Elevated white blood cell count, unspecified (principal); E66.09 Other obesity due to excess calories; I10 Essential (primary) hypertension; E11.9 Type 2 diabetes mellitus without complications

== ENCOUNTER 2019-06-23 13:37 | Emergency (ER) | payer OTHER ==
[~2019-06-23] VITALS: Ht 162.6 cm; Wt 95.2 kg
[~2019-06-23 13:37] MED LIST changes: +CYCL-707 PO; -CYCL10TA PO
[2019-06-23] MEDS ORDERED: ONDANSETRON 4MG/2ML VIAL IV ONE (14:00)
[2019-06-23] MEDS ORDERED: NS 500 ML IV ONE (14:00)
[2019-06-23 14:24] LABS: BASO # 0.1 10^3/uL (0.0-0.2); BASO % 0.8 % (0.0-1.0); EOS # 0.2 10^3/uL (0.0-0.5); EOS % 1.6 % (0.0-3.0); HEMATOCRIT 43.3 % (36.0-47.0); HEMOGLOBIN 14.3 g/dl (12.0-15.5); LYMPH # 3.2 10^3/uL (1.5-5.0); LYMPH % 33.4 % (24.0-44.0); MEAN CORPUSCULAR HEMOGLOBIN 26.8 pg (27.0-33.0); MEAN CORPUSCULAR VOLUME 81.2 fl (80.0-96.0); MONO # 0.7 10^3/uL (0.0-0.8); MONO % 7.3 % (0.0-5.0); NEUTROPHILS # 5.4 10^3/uL (1.5-8.5); NEUTROPHILS % 56.6 % (36.0-66.0); PLATELET COUNT, AUTOMATED 277 10^3/uL (150-450); RED BLOOD COUNT 5.33 10^6/uL (4.00-5.40); WHITE BLOOD COUNT 9.5 10^3/uL (4.0-10.0)
[2019-06-23] MEDS ORDERED: GLYCERIN ADULT SUPP PR ONE (14:45)
[2019-06-23 14:51] LABS: ALBUMIN 3.2 GM/DL (3.2-5.2); ALT/SGPT 23 U/L (12-78); BILIRUBIN,DIRECT 0.1 MG/DL (0.0-0.2); BILIRUBIN,TOTAL 0.4 MG/DL (0.2-1.0); BLOOD UREA NITROGEN 11 MG/DL (7-18); CALCIUM LEVEL 9.1 MG/DL (8.5-10.1); CARBON DIOXIDE LEVEL 27 MEQ/L (21-32); CHLORIDE LEVEL 105 MEQ/L (98-107); CREATININE FOR GFR 0.64 MG/DL (0.55-1.30); GLOMERULAR FILTRATION RATE > 60.0 (>58); GLUCOSE, FASTING 112 MG/DL (70-100); LIPASE 97 U/L (73-393); POTASSIUM SERUM 4.4 MEQ/L (3.5-5.1); SODIUM LEVEL 139 MEQ/L (136-145); TOTAL PROTEIN 7.3 GM/DL (6.4-8.2)
--- NOTE | 2019-06-23 15:29 | REP ---
ABDOMINAL SERIES: Supine and erect views of the abdomen and pelvis demonstrate no free air and no evidence for obstruction. There is mild air and fecal material scattered throughout the colon. No abnormal calcifications are seen. There is mild curvature of the lumbar spine convex to the left. An accompanying view of the chest demonstrates no acute infiltrate. Heart and mediastinum are within normal limits. IMPRESSION: No evidence free air or obstruction. Electronically Signed by Juan Luis Schultz MD 06/23/2019 04:03 P
[2019-06-23 15:55] VITALS: BP 150/70
[2019-06-23] MEDS ORDERED: MIRA3350 PO (16:06)
[2019-06-23] MEDS ORDERED: COLA100C5 PO (16:06)
[2019-06-23] MEDS ORDERED: MAGNESIUM CITRATE 300 ML BTL PO ONE (16:15)
== END 2019-06-23 16:17 | disposition home or self-care (01) ==
LOC: M ED 13:37
DX: K59.00 Constipation, unspecified (principal); E11.9 Type 2 diabetes mellitus without complications; I10 Essential (primary) hypertension; K21.9 Gastro-esophageal reflux disease without esophagitis; Z79.899 Other long term (current) drug therapy
CPT/HCPCS: 74021; 80048; 80076; 81001; 83690; 85025; 96361; 96374; 99284; J2405

== ENCOUNTER → 2019-06-27 | Outpatient (CLI) | payer OTHER ==
[~2019-06-27] MED LIST changes: +COLA100C5 PO; +MIRA3350 PO
--- NOTE | 2019-06-27 18:02 | REP ---
MRI CERVICAL SPINE WITHOUT CONTRAST: HISTORY: Rule out cervical rib or thoracic outlet. The patient relates a left hand numbness episodes. Comparison CT study cervical spine is from September 17, 2018. TECHNIQUE: Sagittal and axial T1 and T2-weighted scans are acquired in the usual fashion with and without fat saturation. Sequences include spin echo, turbo spin-echo, and STIR imaging sequences. MRI FINDINGS: Cervical vertebral body heights are preserved and alignment is normal. No bony destructive lesion is seen. Cervical cord is normal in course, caliber, and signal intensity on T1- and T2-weighted scans. The spinal canal is capacious. No cord compressive lesion is seen at any level. There is a small central focal disc protrusion just to the left of midline at the C5-6 disc level effacing the ventral subarachnoid space but not contacting the cord. No neural foraminal narrowing is seen. At C6-C7, there is central disc bulging, mild in degree, again without cord compression. No neural foraminal lesion is seen. Exam is otherwise unremarkable. IMPRESSION: Mild degenerative disc changes C5-6 and C6-7. Small central focal disc protrusion C5-6. No cord compressive lesion seen. No neural foraminal narrowing noted. Electronically Signed by Guru Rodriguez MD 06/27/2019 06:51 P
== END ==
LOC: M RAD 14:45
PROVIDERS: ATTEND Physician Assistant
DX: M51.36 Other intervertebral disc degeneration, lumbar region (principal)

== ENCOUNTER → 2019-06-28 | Outpatient (REF) | payer OTHER | LOC: M LAB REF 17:09 | PROVIDERS: ATTEND Physician Assistant | DX: N30.00 Acute cystitis without hematuria (principal) ==

== ENCOUNTER → 2019-11-08 | Outpatient (CLI) | payer OTHER | LOC: M LABSMTC 09:58 | PROVIDERS: ATTEND Orthopaedic Surgery | DX: Z01.812 Encounter for preprocedural laboratory examination (principal); Z20.828 Contact with and (suspected) exposure to other viral communicable diseases ==

== ENCOUNTER → 2019-11-09 | Outpatient (CLI) | payer OTHER | LOC: M LABSMTC 09:24 | PROVIDERS: ATTEND Orthopaedic Surgery | DX: Z01.812 Encounter for preprocedural laboratory examination (principal); Z20.828 Contact with and (suspected) exposure to other viral communicable diseases ==

== ENCOUNTER → 2019-12-14 | Outpatient (REF) | payer OTHER ==
[2019-12-14 13:48] LABS: BASO # 0.1 10^3/uL (0.0-0.2); BASO % 0.8 % (0.0-1.0); EOS # 0.1 10^3/uL (0.0-0.5); EOS % 1.3 % (0.0-3.0); HEMATOCRIT 42.7 % (36.0-47.0); HEMOGLOBIN 13.4 g/dl (12.0-15.5); LYMPH # 2.3 10^3/uL (1.5-5.0); LYMPH % 29.3 % (24.0-44.0); MEAN CORPUSCULAR HEMOGLOBIN 26.4 pg (27.0-33.0); MEAN CORPUSCULAR HGB CONC 31.4 g/dl (32.0-36.5); MEAN CORPUSCULAR VOLUME 84.1 fl (80.0-96.0); MONO # 0.6 10^3/uL (0.0-0.8); MONO % 7.9 % (0.0-5.0); NEUTROPHILS # 4.8 10^3/uL (1.5-8.5); NEUTROPHILS % 60.4 % (36.0-66.0); PLATELET COUNT, AUTOMATED 293 10^3/uL (150-450); RED BLOOD COUNT 5.08 10^6/uL (4.00-5.40); WHITE BLOOD COUNT 7.9 10^3/uL (4.0-10.0)
[2019-12-14 14:46] LABS: ALBUMIN 3.5 GM/DL (3.2-5.2); ALT/SGPT 20 U/L (12-78); BILIRUBIN,TOTAL 0.6 MG/DL (0.2-1.0); BLOOD UREA NITROGEN 14 MG/DL (7-18); CALCIUM LEVEL 9.4 MG/DL (8.5-10.1); CARBON DIOXIDE LEVEL 26 MEQ/L (21-32); CHLORIDE LEVEL 106 MEQ/L (98-107); CHOLESTEROL LEVEL 158 MG/DL (<200); CHOLESTEROL RISK RATIO 2.257 (<5); GLOMERULAR FILTRATION RATE > 60.0 (>58); GLUCOSE, FASTING 162 MG/DL (70-100); HDL CHOLESTEROL 70 MG/DL (>40); LDL CHOLESTEROL 80 MG/DL (<100); NON-HDL-C 88 MG/DL; POTASSIUM SERUM 4.3 MEQ/L (3.5-5.1); SODIUM LEVEL 139 MEQ/L (136-145); TOTAL PROTEIN 7.7 GM/DL (6.4-8.2); TRIGLYCERIDES LEVEL 41 MG/DL (<150)
[2019-12-14 14:57] LABS: TOTAL 25(OH) VITAMIN D 29.5 NG/ML (30.0-100.0)
== END ==
LOC: M LAB REF 12:52
PROVIDERS: ATTEND Nurse Practitioner Family
DX: Z68.37 Body mass index [BMI] 37.0-37.9, adult (principal)

== ENCOUNTER → 2020-05-13 | Outpatient (REF) | payer OTHER ==
[~2020-05-13] MED LIST changes: -LISI-538 PO; +LISI10TA22 PO; -LISI10TA4 PO; +LISI20TA33 PO
[2020-05-13 11:45] LABS: BASO # 0.1 10^3/uL (0.0-0.2); BASO % 0.6 % (0.0-1.0); EOS # 0.2 10^3/uL (0.0-0.5); EOS % 2.3 % (0.0-3.0); HEMATOCRIT 42.4 % (36.0-47.0); HEMOGLOBIN 13.5 g/dl (12.0-15.5); LYMPH # 2.6 10^3/uL (1.5-5.0); LYMPH % 32.6 % (24.0-44.0); MEAN CORPUSCULAR HEMOGLOBIN 26.9 pg (27.0-33.0); MEAN CORPUSCULAR HGB CONC 31.8 g/dl (32.0-36.5); MEAN CORPUSCULAR VOLUME 84.6 fl (80.0-96.0); MONO # 0.6 10^3/uL (0.0-0.8); NEUTROPHILS # 4.4 10^3/uL (1.5-8.5); NEUTROPHILS % 56.2 % (36.0-66.0); PLATELET COUNT, AUTOMATED 243 10^3/uL (150-450); RED BLOOD COUNT 5.01 10^6/uL (4.00-5.40); WHITE BLOOD COUNT 7.9 10^3/uL (4.0-10.0)
[2020-05-13 12:08] LABS: HEMOGLOBIN A1c 7.9 %
[2020-05-13 12:27] LABS: ALBUMIN 3.3 GM/DL (3.2-5.2); ALT/SGPT 20 U/L (12-78); BILIRUBIN,TOTAL 0.4 MG/DL (0.2-1.0); BLOOD UREA NITROGEN 19 MG/DL (7-18); CALCIUM LEVEL 8.9 MG/DL (8.5-10.1); CARBON DIOXIDE LEVEL 28 MEQ/L (21-32); CHLORIDE LEVEL 107 MEQ/L (98-107); CHOLESTEROL LEVEL 143 MG/DL (<200); CHOLESTEROL RISK RATIO 2.072 (<5); CREATININE FOR GFR 0.61 MG/DL (0.55-1.30); GLOMERULAR FILTRATION RATE > 60.0 (>51); GLUCOSE, FASTING 218 MG/DL (70-100); HDL CHOLESTEROL 69 MG/DL (>40); LDL CHOLESTEROL 66 MG/DL (<100); NON-HDL-C 74 MG/DL; POTASSIUM SERUM 4.4 MEQ/L (3.5-5.1); SODIUM LEVEL 141 MEQ/L (136-145); TOTAL 25(OH) VITAMIN D 18.4 NG/ML (30.0-100.0); TOTAL PROTEIN 7.3 GM/DL (6.4-8.2); TRIGLYCERIDES LEVEL 41 MG/DL (<150)
== END ==
LOC: M LAB REF 11:02
PROVIDERS: ATTEND Nurse Practitioner Family
DX: E11.65 Type 2 diabetes mellitus with hyperglycemia (principal)

== ENCOUNTER 2020-08-10 10:26 | Emergency (ER) | payer OTHER ==
[~2020-08-10] VITALS: Ht 162.6 cm; Wt 100.9 kg
[2020-08-10] MEDS ORDERED: OMEP-218 (10:38)
[2020-08-10] MEDS ORDERED: TRUL0.5I (10:38)
[2020-08-10] MEDS ORDERED: methocarbamoL 750 MG TAB PO ONE (11:20)
[2020-08-10] MEDS ORDERED: KETOROLAC TROMETHAMINE 10 MG TAB PO ONE (11:20)
[2020-08-10] MEDS ORDERED: METH-1164 PO (12:41)
[2020-08-10] MEDS ORDERED: KETO10TAB PO ×2 (12:42→12:44)
[2020-08-10 12:53] VITALS: BP 141/80
== END 2020-08-10 12:54 | disposition home or self-care (01) ==
LOC: M ED 10:26
DX: S13.4XXA Sprain of ligaments of cervical spine, initial encounter (principal); X58.XXXA Exposure to other specified factors, initial encounter; Y92.89 Other specified places as the place of occurrence of the external cause; E11.9 Type 2 diabetes mellitus without complications; I10 Essential (primary) hypertension; K21.9 Gastro-esophageal reflux disease without esophagitis; Z79.899 Other long term (current) drug therapy

== ENCOUNTER → 2020-09-16 | Outpatient (CLI) | payer OTHER ==
[~2020-09-16] MED LIST changes: +ACET500T15 PO; +CETI10CH PO; +ERGO500029 PO; +METH-1164 PO; +OMEP-173; +OMEP1CAP73 PO; +TRUL0.5I SC
== END ==
LOC: M RAD 15:00
PROVIDERS: ATTEND Nurse Practitioner Family
DX: M51.36 Other intervertebral disc degeneration, lumbar region (principal); M48.061 Spinal stenosis, lumbar region without neurogenic claudication; M41.9 Scoliosis, unspecified; M54.5 Low back pain; M54.2 Cervicalgia

== ENCOUNTER 2020-10-17 07:08 | Emergency (ER) | payer OTHER ==
[~2020-10-17] VITALS: Ht 162.6 cm; Wt 99.5 kg
[2020-10-17 07:12] VITALS: BP 200/100
== END 2020-10-17 11:28 | disposition left against medical advice (07) ==
LOC: M ED 07:08
DX: Z53.21 Procedure and treatment not carried out due to patient leaving prior to being seen by health care provider (principal)

== ENCOUNTER → 2020-10-17 | Outpatient (REF) | payer OTHER ==
[~2020-10-17] MED LIST changes: -ACET500T15 PO; -CETI10CH PO; -ERGO500029 PO; -OMEP-173; +OMEP-218; -OMEP1CAP73 PO; +TRUL0.5I; -TRUL0.5I SC
[2020-10-17 11:51] LABS: APPEARANCE, URINE HAZY (CLEAR); BACTERIA, URINE AUTO 1+ (NEGATIVE); BILIRUBIN, URINE AUTO NEGATIVE (NEGATIVE); BLOOD, URINE BLOOD NEGATIVE (NEGATIVE); COLOR, URINE YELLOW (YELLOW); GLUCOSE, URINE (UA) AUTO 2+ mg/dL (NEGATIVE); KETONE, URINE AUTO NEGATIVE (NEGATIVE); LEUKOCYTE ESTERASE, URINE AUTO TRACE (NEGATIVE); MUCUS, URINE SMALL (NEGATIVE); NITRITE, URINE AUTO NEGATIVE (NEGATIVE); PROTEIN, URINE AUTO 1+ mg/dL (NEGATIVE); RBC, URINE AUTO 0 /HPF (0-3); SPECIFIC GRAVITY URINE AUTO 1.025 (1.002-1.035); SQUAMOUS EPITHELIAL CELL UR AU 2 /HPF (0-6); URINE PREG TEST NEGATIVE (NEGATIVE); UROBILINOGEN, URINE AUTO 0.2 mg/dL (0.0-2.0); WBC, URINE AUTO 2 /HPF (0-3)
== END ==
LOC: M LAB REF 11:22
PROVIDERS: ATTEND Physician Assistant
DX: N39.0 Urinary tract infection, site not specified (principal)

== ENCOUNTER → 2020-12-02 | Outpatient (CLI) | payer OTHER ==
--- NOTE | 2020-12-02 08:18 | REP ---
INDICATION: PAIN IN RT HIP . COMPARISON: Right hip, 06/24/2011. TECHNIQUE: Two views of the right hip were obtained. FINDINGS: There is no fracture or dislocation. There is no significant arthropathy. The periarticular soft tissues are unremarkable. IMPRESSION: Normal right hip. <Electronically signed by Brett Velasco > 12/02/20 [id number]
--- NOTE | 2020-12-02 08:19 | REP ---
INDICATION: PAIN IN RT HIP . COMPARISON: None. TECHNIQUE: Five views of the right knee were obtained. FINDINGS: There is no fracture or dislocation. There is no significant arthropathy. There is no knee joint effusion. The periarticular soft tissues are unremarkable. IMPRESSION: Normal right knee. <Electronically signed by Brett Velasco > 12/02/20 [id number]
== END ==
LOC: M RAD 07:20
PROVIDERS: ATTEND Physician Assistant
DX: M25.551 Pain in right hip (principal); M25.561 Pain in right knee

== ENCOUNTER → 2020-12-13 | Outpatient (CLI) | payer OTHER ==
--- NOTE | 2020-12-13 09:17 | REP ---
INDICATION: ABD PAIN. COMPARISON: Right upper quadrant ultrasound of 09/21/2018 TECHNIQUE: Transabdominal ultrasound FINDINGS: Multiple ultrasonographic images of the liver show the hepatic parenchymal echo pattern to be increased. There is no intrahepatic or extrahepatic ductal dilatation. The common bile duct measures 6 mm. Multiple ultrasonographic images of the gallbladder show multiple echogenic foci within the gallbladder lumen. There is no gallbladder wall thickening, or pericholecystic edema. The imaged portion of the pancreas is within normal limits. The spleen measures 11.9 x 4 x11.4 cm. No perisplenic abnormalities are noted. The right kidney measures 12.9 x 6.7 x 5.5 cm. The renal cortical echotexture is within normal limits. Corticomedullary differentiation is preserved. There is no hydronephrosis. There are no masses. The left kidney measures 12 x 5.9 x 5.3 cm. The renal cortical echotexture is within normal limits. Corticomedullary differentiation is preserved. There is no hydronephrosis. There are no masses. The imaged portion of the abdominal aorta is within normal limits. There is no evidence of free fluid. IMPRESSION: 1. Cholelithiasis. 2. Fatty infiltration of the liver. 3. Mild splenomegaly. <Electronically signed by Michael Sesay > 12/13/20 [id number]
== END ==
LOC: M RAD 08:17
PROVIDERS: ATTEND Nurse Practitioner Family
DX: R10.9 Unspecified abdominal pain (principal)

== ENCOUNTER 2021-05-20 03:58 | Emergency (ER) | payer OTHER ==
[~2021-05-20] VITALS: Ht 162.6 cm; Wt 99.3 kg
[~2021-05-20 03:58] MED LIST changes: +ACET500T15 PO; +CETI10CH PO; +ERGO500029 PO; +OMEP-173; -OMEP-218; +OMEP1CAP73 PO; -TRUL0.5I; +TRUL0.5I SC
[2021-05-20 03:59] VITALS: BP 190/100
[2021-05-20] MEDS ORDERED: IBUP80TA PO (04:10)
[2021-05-20] MEDS ORDERED: KETOROLAC 30 MG/ML 1ML VIAL IM ONE (07:05)
== END 2021-05-20 08:02 | disposition home or self-care (01) ==
LOC: M ED 03:58
DX: R07.81 Pleurodynia (principal); W19.XXXA Unspecified fall, initial encounter; Y92.099 Unspecified place in other non-institutional residence as the place of occurrence of the external cause; Y93.89 Activity, other specified; Y99.9 Unspecified external cause status; I10 Essential (primary) hypertension; E11.9 Type 2 diabetes mellitus without complications; Z79.899 Other long term (current) drug therapy
CPT/HCPCS: 71101; 96372; 99283; J1885

== ENCOUNTER 2021-05-28 21:23 | Emergency (ER) | payer OTHER ==
[~2021-05-28] VITALS: Ht 162.6 cm; Wt 98.6 kg
[2021-05-28] MEDS ORDERED: PERCOCET 5MG/325MG TAB PO ONE (22:55)
[2021-05-28] MEDS ORDERED: PERCOCET PO (23:46)
[2021-05-29 00:43] VITALS: BP 186/88
== END 2021-05-29 00:43 | disposition home or self-care (01) ==
LOC: M ED 21:23 → EDBD 21:23 → M ED 05-29 00:43
DX: S70.02XA Contusion of left hip, initial encounter (principal); S20.212A Contusion of left front wall of thorax, initial encounter; R07.9 Chest pain, unspecified; E11.9 Type 2 diabetes mellitus without complications; I10 Essential (primary) hypertension; K21.9 Gastro-esophageal reflux disease without esophagitis; Z79.811 Long term (current) use of aromatase inhibitors; Z79.899 Other long term (current) drug therapy; Y92.009 Unspecified place in unspecified non-institutional (private) residence as the place of occurrence of the external cause; Y93.9 Activity, unspecified; Y99.9 Unspecified external cause status

== ENCOUNTER → 2021-06-06 | Outpatient (REF) | payer OTHER ==
[~2021-06-06] MED LIST changes: +PERCOCET PO
== END ==
LOC: M LAB REF 17:02
PROVIDERS: ATTEND Pediatrics
DX: R82.90 Unspecified abnormal findings in urine (principal)

== ENCOUNTER 2021-08-10 08:14 | Emergency (ER) | payer OTHER ==
[~2021-08-10] VITALS: Ht 162.6 cm; Wt 98.2 kg
[2021-08-10] MEDS ORDERED: GLIP5TAB8 PO (08:21)
[2021-08-10 08:41] LABS: BASO % 0.3 % (0.0-1.0); EOS # 0.3 10^3/uL (0.0-0.5); EOS % 3.1 % (0.0-3.0); HEMATOCRIT 43.6 % (36.0-47.0); HEMOGLOBIN 14.4 g/dl (12.0-15.5); LYMPH # 3.1 10^3/uL (1.5-5.0); LYMPH % 32.4 % (24.0-44.0); MEAN CORPUSCULAR HEMOGLOBIN 27.3 pg (27.0-33.0); MEAN CORPUSCULAR VOLUME 82.7 fl (80.0-96.0); MONO # 0.6 10^3/uL (0.0-0.8); NEUTROPHILS # 5.6 10^3/uL (1.5-8.5); PLATELET COUNT, AUTOMATED 245 10^3/uL (150-450); RED BLOOD COUNT 5.27 10^6/uL (4.00-5.40); WHITE BLOOD COUNT 9.6 10^3/uL (4.0-10.0)
[2021-08-10 09:12] LABS: ALBUMIN 3.3 GM/DL (3.2-5.2); BILIRUBIN,DIRECT 0.3 MG/DL (0.0-0.2); BILIRUBIN,TOTAL 0.7 MG/DL (0.2-1.0); TOTAL PROTEIN 7.7 GM/DL (6.4-8.2)
[2021-08-10] MEDS ORDERED: ONDANSETRON 4MG 2ML VIAL IV ONE (09:35)
[2021-08-10] MEDS ORDERED: MORPHINE 4 MG/ML 1ML VIAL/SYRINGE IV PRN (09:35)
[2021-08-10] MEDS ORDERED: NS 1,000 ML IV SCH (09:35)
[2021-08-10] MEDS ORDERED: ISOVUE-370 76% 100ML VIAL As Ordered ONE (09:42)
[2021-08-10] MEDS ORDERED: METOCLOPRAMIDE INJ 10MG/2ML VIAL (J2765 PER 1) IV ONE (10:55)
[2021-08-10 12:31] VITALS: BP 152/70
[2021-08-10] MEDS ORDERED: REGL10TA6 PO (13:05)
== END 2021-08-10 13:18 | disposition home or self-care (01) ==
LOC: M ED 08:14
DX: R10.9 Unspecified abdominal pain (principal); E11.9 Type 2 diabetes mellitus without complications; I10 Essential (primary) hypertension; K21.9 Gastro-esophageal reflux disease without esophagitis; Z79.811 Long term (current) use of aromatase inhibitors; Z79.899 Other long term (current) drug therapy
CPT/HCPCS: 74021; 74177; 80047; 80076; 83690; 84702; 85025; 96361; 96374; 96375; 99284; J2270; J2405; J2765; Q9967

== ENCOUNTER → 2021-11-21 | Outpatient (REF) | payer OTHER ==
[~2021-11-21] MED LIST changes: +GLIP5TAB8 PO; +REGL10TA6 PO
[2021-11-21 17:11] LABS: BASO # 0.1 10^3/uL (0.0-0.2); BASO % 0.5 % (0.0-1.0); EOS # 0.1 10^3/uL (0.0-0.5); EOS % 1.5 % (0.0-3.0); HEMATOCRIT 44.3 % (36.0-47.0); HEMOGLOBIN 14.3 g/dl (12.0-15.5); LYMPH # 2.8 10^3/uL (1.5-5.0); LYMPH % 30.4 % (24.0-44.0); MEAN CORPUSCULAR HEMOGLOBIN 27.7 pg (27.0-33.0); MEAN CORPUSCULAR HGB CONC 32.3 g/dl (32.0-36.5); MEAN CORPUSCULAR VOLUME 85.9 fl (80.0-96.0); MONO # 0.6 10^3/uL (0.0-0.8); MONO % 6.1 % (2.0-8.0); NEUTROPHILS # 5.6 10^3/uL (1.5-8.5); NEUTROPHILS % 61.2 % (36.0-66.0); PLATELET COUNT, AUTOMATED 282 10^3/uL (150-450); RED BLOOD COUNT 5.16 10^6/uL (4.00-5.40); WHITE BLOOD COUNT 9.2 10^3/uL (4.0-10.0)
[2021-11-21 17:40] LABS: ALBUMIN 3.3 GM/DL (3.2-5.2); ALT/SGPT 33 U/L (12-78); BILIRUBIN,TOTAL 0.5 MG/DL (0.2-1.0); BLOOD UREA NITROGEN 19 MG/DL (7-18); CARBON DIOXIDE LEVEL 28 MEQ/L (21-32); CHLORIDE LEVEL 106 MEQ/L (98-107); CREATININE FOR GFR 0.59 MG/DL (0.55-1.30); GLOMERULAR FILTRATION RATE > 60.0 (>51); GLUCOSE, FASTING 137 MG/DL (70-100); POTASSIUM SERUM 4.4 MEQ/L (3.5-5.1); SODIUM LEVEL 138 MEQ/L (136-145); THYROID STIMULATING HORMONE 0.659 uIU/ML (0.358-3.740); TOTAL PROTEIN 7.4 GM/DL (6.4-8.2)
[2021-11-21 18:11] LABS: TOTAL 25(OH) VITAMIN D 29.8 NG/ML (30.0-100.0)
[2021-11-21 18:50] LABS: HEMOGLOBIN A1c 8.5 %
== END ==
LOC: M LAB REF 16:36
PROVIDERS: ATTEND Nurse Practitioner Family
DX: E11.65 Type 2 diabetes mellitus with hyperglycemia (principal); E55.9 Vitamin D deficiency, unspecified

== ENCOUNTER → 2021-12-04 | Outpatient (REF) | payer OTHER ==
[2021-12-04 15:32] LABS: CHOLESTEROL RISK RATIO 1.986 (<5)
== END ==
LOC: M LAB REF 12:18
PROVIDERS: ATTEND Nurse Practitioner Family
DX: E78.5 Hyperlipidemia, unspecified (principal); E78.2 Mixed hyperlipidemia; E78.00 Pure hypercholesterolemia, unspecified; E78.1 Pure hyperglyceridemia; E78.41 Elevated Lipoprotein(a); E78.49 Other hyperlipidemia

== ENCOUNTER → 2022-01-22 | Outpatient (REF) | payer OTHER ==
[2022-01-22 13:51] LABS: CREATININE, URINE 46.3 MG/DL; MAU/CREAT RATIO 10.7 MCG/MG (0.0-30.0)
== END ==
LOC: M LAB REF 12:52
PROVIDERS: ATTEND Nurse Practitioner Family
DX: E11.65 Type 2 diabetes mellitus with hyperglycemia (principal)

== ENCOUNTER → 2022-02-10 | Outpatient (CLI) | payer OTHER | LOC: M RAD 08:44 | PROVIDERS: ATTEND Nurse Practitioner Family | DX: M54.40 Lumbago with sciatica, unspecified side (principal); M47.816 Spondylosis without myelopathy or radiculopathy, lumbar region ==

== ENCOUNTER → 2022-03-10 | Outpatient (RCR) | payer OTHER | LOC: M PT 03-03 09:06 | PROVIDERS: ATTEND Nurse Practitioner Family | DX: M54.40 Lumbago with sciatica, unspecified side (principal) ==

== ENCOUNTER 2022-05-08 19:45 | Emergency (ER) | payer OTHER ==
[~2022-05-08] VITALS: Ht 162.6 cm; Wt 103.6 kg
[2022-05-08 21:00] LABS: BASO # 0.1 10^3/uL (0.0-0.2); BASO % 0.5 % (0.0-1.0); EOS # 0.3 10^3/uL (0.0-0.5); EOS % 2.5 % (0.0-3.0); HEMOGLOBIN 14.3 g/dl (12.0-15.5); LYMPH # 3.7 10^3/uL (1.5-5.0); MEAN CORPUSCULAR HEMOGLOBIN 27.4 pg (27.0-33.0); MEAN CORPUSCULAR HGB CONC 32.5 g/dl (32.0-36.5); MEAN CORPUSCULAR VOLUME 84.3 fl (80.0-96.0); MONO % 9.3 % (2.0-8.0); NEUTROPHILS # 5.6 10^3/uL (1.5-8.5); NEUTROPHILS % 52.4 % (36.0-66.0); PLATELET COUNT, AUTOMATED 252 10^3/uL (150-450); RED BLOOD COUNT 5.22 10^6/uL (4.00-5.40); WHITE BLOOD COUNT 10.7 10^3/uL (4.0-10.0)
[2022-05-08 21:09] LABS: LIPASE 34 U/L (12-53)
[2022-05-08] MEDS ORDERED: MORPHINE 4 MG/ML 1ML VIAL IV ONE ×2 (21:10→22:40)
[2022-05-08] MEDS ORDERED: ONDANSETRON 4MG 2ML VIAL IV ONE (21:10)
[2022-05-08 21:11] LABS: ALBUMIN 3.4 G/DL (3.2-5.2); ALKALINE PHOSPHATASE 77 U/L (46-116); ALT/SGPT 54 U/L (7.0-40); AST/SGOT 37 U/L (<34); BILIRUBIN,DIRECT 0.1 MG/DL (<0.4); BILIRUBIN,TOTAL 0.3 MG/DL (0.3-1.2); BLOOD UREA NITROGEN 14 MG/DL (9-23); CALCIUM LEVEL 9.4 MG/DL (8.5-10.1); CARBON DIOXIDE LEVEL 30 MMOL/L (20-31); CHLORIDE LEVEL 104 MMOL/L (98-107); CREATININE FOR GFR 0.49 MG/DL (0.55-1.30); GLOMERULAR FILTRATION RATE > 60.0 (>51); GLUCOSE, FASTING 268 MG/DL (60-100); POTASSIUM SERUM 4.1 MMOL/L (3.5-5.1); SODIUM LEVEL 141 MMOL/L (136-145)
[2022-05-08] MEDS ORDERED: ISOVUE-370 76% 100ML VIAL As Ordered ONE (21:12)
[2022-05-08 22:05] LABS: INR 1.01; PROTHROMBIN TIME 13.5 SECONDS (12.5-14.5)
[2022-05-08 22:39] LABS: CK-MB VALUE MASS 1.2 NG/ML (<3.6)
[2022-05-08] MEDS ORDERED: OXYCODONE/APAP 5MG/325MG(HOME DOSE PACK) PO ONE (22:40)
[2022-05-08 22:43] LABS: MB/CK RELATIVE INDEX 0.88 (< OR =4)
[2022-05-08] MEDS ORDERED: COLA100C5 PO (22:44)
[2022-05-08] MEDS ORDERED: PERC5TAB12 PO (22:44)
[2022-05-08 22:47] VITALS: BP 150/90
== END 2022-05-08 23:36 | disposition home or self-care (01) ==
LOC: M ED 19:45
DX: K42.9 Umbilical hernia without obstruction or gangrene (principal); I44.4 Left anterior fascicular block; I25.2 Old myocardial infarction; E11.9 Type 2 diabetes mellitus without complications; I10 Essential (primary) hypertension; K21.9 Gastro-esophageal reflux disease without esophagitis; Z79.811 Long term (current) use of aromatase inhibitors; Z79.899 Other long term (current) drug therapy
CPT/HCPCS: 36415; 74177; 80048; 80076; 81001; 82150; 82550; 82553; 83690; 85025; 85610; 93005; 93041; 96374; 96375; 99284; J2405; Q9967

== ENCOUNTER 2022-08-09 20:17 | Emergency (ER) | payer OTHER ==
[~2022-08-09] VITALS: Ht 162.6 cm; Wt 101.5 kg
[2022-08-09 20:17] VITALS: TEMP 98.3
[~2022-08-09 20:17] MED LIST changes: +PERC5TAB12 PO
[2022-08-09] MEDS ORDERED: ACETAMINOPHEN TAB 650MG DOSE (2X325MG) PO ONE (21:55)
[2022-08-09 22:32] VITALS: O2SAT 97
[2022-08-09 22:50] VITALS: BP 150/82
== END 2022-08-09 23:29 | disposition home or self-care (01) ==
LOC: M ED 20:17
DX: S09.90XA Unspecified injury of head, initial encounter (principal); S70.01XA Contusion of right hip, initial encounter; E11.9 Type 2 diabetes mellitus without complications; I10 Essential (primary) hypertension; K21.9 Gastro-esophageal reflux disease without esophagitis; W01.0XXA Fall on same level from slipping, tripping and stumbling without subsequent striking against object, initial encounter; Y92.009 Unspecified place in unspecified non-institutional (private) residence as the place of occurrence of the external cause; Z79.811 Long term (current) use of aromatase inhibitors; Z79.899 Other long term (current) drug therapy

== ENCOUNTER → 2022-09-29 | Outpatient (CLI) | payer OTHER | LOC: M PLAIMG 06:46 | PROVIDERS: ATTEND Physician Assistant | DX: M51.36 Other intervertebral disc degeneration, lumbar region (principal); M47.896 Other spondylosis, lumbar region ==

== ENCOUNTER 2022-10-06 11:56 | Emergency (ER) | payer OTHER ==
[~2022-10-06] VITALS: Ht 162.6 cm; Wt 100.0 kg
[2022-10-06] MEDS ORDERED: LOSA50TA28 (12:10)
[2022-10-06] MEDS ORDERED: GABA-1171 (12:10)
[2022-10-06] MEDS ORDERED: IBUPROFEN 400MG TAB PO ONE (12:40)
[2022-10-06] MEDS ORDERED: NORCO, ANEXSIA 5/325MG TABLET (HYDROcodone/ACETAMINOPHEN) PO ONE (12:40)
[2022-10-06] MEDS ORDERED: ROLLMIS8 XX (12:44)
[2022-10-06] MEDS ORDERED: NIFEdipine 10 MG CAP PO ONE (13:00)
[2022-10-06 13:02] VITALS: BP 160/70; TEMP 97; O2SAT 97
== END 2022-10-06 13:05 | disposition home or self-care (01) ==
LOC: M ED 11:56
DX: S70.01XA Contusion of right hip, initial encounter (principal); W19.XXXA Unspecified fall, initial encounter; E11.9 Type 2 diabetes mellitus without complications; K21.9 Gastro-esophageal reflux disease without esophagitis; I10 Essential (primary) hypertension; Y92.410 Unspecified street and highway as the place of occurrence of the external cause; Z79.810 Long term (current) use of selective estrogen receptor modulators (SERMs); Z79.899 Other long term (current) drug therapy

== ENCOUNTER 2022-12-23 12:31 | Emergency (ER) | payer OTHER ==
[~2022-12-23] VITALS: Ht 162.6 cm; Wt 94.3 kg
[~2022-12-23 12:31] MED LIST changes: +GABA-1171; +GLIP5TAB17 PO; -GLIP5TAB8 PO; +LOSA50TA28; +ROLLMIS8 XX
[2022-12-23] MEDS ORDERED: ERGO500029 (12:40)
[2022-12-23 13:22] LABS: BASO % 0.6 % (0.0-1.0); EOS # 0.1 10^3/uL (0.0-0.5); EOS % 1.7 % (0.0-3.0); HEMATOCRIT 46.7 % (36.0-47.0); HEMOGLOBIN 15.9 g/dl (12.0-15.5); LYMPH # 2.5 10^3/uL (1.5-5.0); LYMPH % 35.2 % (24.0-44.0); MEAN CORPUSCULAR HEMOGLOBIN 28.1 pg (27.0-33.0); MEAN CORPUSCULAR VOLUME 82.7 fl (80.0-96.0); MONO # 0.5 10^3/uL (0.0-0.8); MONO % 6.7 % (2.0-8.0); NEUTROPHILS # 3.9 10^3/uL (1.5-8.5); NEUTROPHILS % 55.5 % (36.0-66.0); PLATELET COUNT, AUTOMATED 210 10^3/uL (150-450); RED BLOOD COUNT 5.65 10^6/uL (4.00-5.40)
[2022-12-23 13:45] LABS: CK-MB VALUE MASS 2.1 NG/ML (<3.6)
[2022-12-23 13:47] LABS: BLOOD UREA NITROGEN 18 MG/DL (9-23); CALCIUM LEVEL 9.5 MG/DL (8.5-10.1); CARBON DIOXIDE LEVEL 25 MMOL/L (20-31); CHLORIDE LEVEL 103 MMOL/L (98-107); CPK CREATINE PHOSPHOKINASE 94 U/L (34-145); CREATININE FOR GFR 0.54 MG/DL (0.55-1.30); GLOMERULAR FILTRATION RATE > 60.0 (>51); GLUCOSE, FASTING 374 MG/DL (60-100); MB/CK RELATIVE INDEX 2.23 (< OR =4); POTASSIUM SERUM 4.5 MMOL/L (3.5-5.1); SODIUM LEVEL 137 MMOL/L (136-145)
[2022-12-23 14:09] LABS: RSV AMPLIFICATION NEGATIVE (NEGATIVE)
[2022-12-23 14:36] LABS: CK-MB VALUE MASS 1.1 NG/ML (<3.6)
[2022-12-23 14:37] LABS: MB/CK RELATIVE INDEX 1.34 (< OR =4)
[2022-12-23] MEDS ORDERED: ISOVUE-370 76% 100ML VIAL As Ordered ONE (14:48)
[2022-12-23 15:49] VITALS: BP 175/77; TEMP 97.5; O2SAT 100
== END 2022-12-23 15:40 | disposition home or self-care (01) ==
LOC: EDBD 12:31 → M ED 12:31
DX: R07.9 Chest pain, unspecified (principal); I44.4 Left anterior fascicular block; I25.2 Old myocardial infarction; E11.9 Type 2 diabetes mellitus without complications; I10 Essential (primary) hypertension; K21.9 Gastro-esophageal reflux disease without esophagitis; Z79.811 Long term (current) use of aromatase inhibitors; Z79.899 Other long term (current) drug therapy
CPT/HCPCS: 36415; 71045; 71275; 80047; 80048; 82550; 82553; 85025; 87631; 93005; 93041; 94760; 99285; Q9967

== ENCOUNTER 2023-01-29 09:52 | Emergency (ER) | payer OTHER ==
[~2023-01-29] VITALS: Ht 162.6 cm; Wt 100.0 kg
[~2023-01-29 09:52] MED LIST changes: +ERGO500029
[2023-01-29] MEDS ORDERED: LIDOCAINE 5% (LIDODERM) PATCH TD ONE (12:10)
[2023-01-29] MEDS ORDERED: diazePAM 5MG TABLET PO ONE (12:10)
[2023-01-29] MEDS ORDERED: ACETAMINOPHEN 500 MG TAB PO ONE (12:10)
[2023-01-29] MEDS ORDERED: KETOROLAC 30 MG/ML 1ML VIAL IV ONE (12:10)
[2023-01-29 12:50] LABS: HEMATOCRIT 48.2 % (36.0-47.0); HEMOGLOBIN 15.9 g/dl (12.0-15.5); MEAN CORPUSCULAR HEMOGLOBIN 27.7 pg (27.0-33.0); MEAN CORPUSCULAR VOLUME 83.8 fl (80.0-96.0); PLATELET COUNT, AUTOMATED 234 10^3/uL (150-450); RED BLOOD COUNT 5.75 10^6/uL (4.00-5.40); WHITE BLOOD COUNT 8.4 10^3/uL (4.0-10.0)
[2023-01-29 12:55] LABS: ERYTHROCYTE SEDIMENTATION RATE 53 mm/hr (0-30)
[2023-01-29 13:17] LABS: BLOOD UREA NITROGEN 15 MG/DL (9-23); CALCIUM LEVEL 9.9 MG/DL (8.5-10.1); CARBON DIOXIDE LEVEL 26 MMOL/L (20-31); CHLORIDE LEVEL 106 MMOL/L (98-107); CREATININE FOR GFR 0.42 MG/DL (0.55-1.30); GLOMERULAR FILTRATION RATE > 60.0 (>51); GLUCOSE, FASTING 289 MG/DL (60-100); POTASSIUM SERUM 4.3 MMOL/L (3.5-5.1); SODIUM LEVEL 140 MMOL/L (136-145)
[2023-01-29] MEDS ORDERED: LIDO5DIS41 TD (14:23)
[2023-01-29] MEDS ORDERED: METH-1164 PO (14:23)
[2023-01-29 14:39] VITALS: BP 160/85; TEMP 97.5; O2SAT 98
== END 2023-01-29 14:49 | disposition home or self-care (01) ==
LOC: EDBD 09:52 → M ED 11:32
DX: M54.50 Low back pain, unspecified (principal); E11.9 Type 2 diabetes mellitus without complications; I10 Essential (primary) hypertension; K21.9 Gastro-esophageal reflux disease without esophagitis; Z79.84 Long term (current) use of oral hypoglycemic drugs; Z79.811 Long term (current) use of aromatase inhibitors; Z79.899 Other long term (current) drug therapy
CPT/HCPCS: 72131; 80048; 85027; 85652; 86140; 96374; 99284; J1885

== ENCOUNTER 2023-02-15 00:46 | Emergency (ER) | payer OTHER ==
[~2023-02-15 00:46] MED LIST changes: +LIDO5DIS41 TD
[2023-02-15] MEDS ORDERED: hydrALAZINE 20MG/ML 1ML VIAL IV STA (01:00)
[2023-02-15] MEDS ORDERED: HumuLIN R (REGULAR) INSULIN (NovoLIN R) **100U/ML** PER UNIT SC STA (01:00)
[2023-02-15 01:06] VITALS: BP 210/74
[2023-02-15 01:13] LABS: BASO # 0.1 10^3/uL (0.0-0.2); BASO % 0.5 % (0.0-1.0); EOS # 0.2 10^3/uL (0.0-0.5); EOS % 1.9 % (0.0-3.0); HEMATOCRIT 42.4 % (36.0-47.0); HEMOGLOBIN 14.4 g/dl (12.0-15.5); LYMPH # 4.4 10^3/uL (1.5-5.0); LYMPH % 40.9 % (24.0-44.0); MEAN CORPUSCULAR HEMOGLOBIN 28.2 pg (27.0-33.0); MEAN CORPUSCULAR VOLUME 83.1 fl (80.0-96.0); MONO # 0.8 10^3/uL (0.0-0.8); MONO % 7.4 % (2.0-8.0); NEUTROPHILS # 5.3 10^3/uL (1.5-8.5); NEUTROPHILS % 48.9 % (36.0-66.0); PLATELET COUNT, AUTOMATED 203 10^3/uL (150-450); WHITE BLOOD COUNT 10.8 10^3/uL (4.0-10.0)
[2023-02-15 01:38] LABS: ALBUMIN 3.3 G/DL (3.2-5.2); ALKALINE PHOSPHATASE 87 U/L (46-116); ALT/SGPT 31 U/L (7.0-40); AST/SGOT 15 U/L (<34); BILIRUBIN,DIRECT 0.1 MG/DL (<0.4); BILIRUBIN,TOTAL 0.3 MG/DL (0.3-1.2); BLOOD UREA NITROGEN 15 MG/DL (9-23); CALCIUM LEVEL 8.9 MG/DL (8.5-10.1); CARBON DIOXIDE LEVEL 28 MMOL/L (20-31); CHLORIDE LEVEL 102 MMOL/L (98-107); CREATININE FOR GFR 0.59 MG/DL (0.55-1.30); GLOMERULAR FILTRATION RATE > 60.0 (>51); GLUCOSE, FASTING 365 MG/DL (60-100); POTASSIUM SERUM 3.7 MMOL/L (3.5-5.1); SODIUM LEVEL 136 MMOL/L (136-145); TOTAL PROTEIN 6.7 G/DL (5.7-8.2)
[2023-02-15] MEDS ORDERED: MAALOX 30 ML SUSP *UDC PO ONE (02:40)
[2023-02-15 03:24] VITALS: BP 154/78; TEMP 98.8; O2SAT 98
== END 2023-02-15 03:26 | disposition home or self-care (01) ==
LOC: M ED 00:46 → EDBD 00:46 → M ED 03:26
DX: I16.0 Hypertensive urgency (principal); E11.65 Type 2 diabetes mellitus with hyperglycemia; I44.4 Left anterior fascicular block; I45.81 Long QT syndrome; I10 Essential (primary) hypertension; M54.50 Low back pain, unspecified; Z79.811 Long term (current) use of aromatase inhibitors; Z79.4 Long term (current) use of insulin; Z79.899 Other long term (current) drug therapy
CPT/HCPCS: 36415; 71046; 80048; 80076; 85025; 87486; 87581; 87633; 87798; 93005; 96374; 99284; J0360; J1815

== ENCOUNTER → 2023-03-05 | Outpatient (REF) | payer OTHER ==
[2023-03-08 13:22] LABS: CREATININE, URINE 29.3 MG/DL; CREATININE,RANDOM URINE 29.3 MG/DL; MAU/CREAT RATIO 10.2 MCG/MG (0.0-30.0)
== END ==
LOC: M LAB REF 12:07
PROVIDERS: ATTEND Nurse Practitioner Family
DX: E11.65 Type 2 diabetes mellitus with hyperglycemia (principal)

== ENCOUNTER → 2023-04-09 | Outpatient (CLI) | payer OTHER | LOC: M PLAIMG 14:18 | PROVIDERS: ATTEND Orthopaedic Surgery | DX: M47.817 Spondylosis without myelopathy or radiculopathy, lumbosacral region (principal) ==

== ENCOUNTER 2023-04-17 18:06 | Emergency (ER) | payer OTHER ==
[~2023-04-17] VITALS: Ht 162.6 cm; Wt 98.7 kg
[2023-04-17] MEDS ORDERED: HYDR-3490 (18:18)
[2023-04-17] MEDS: CYCLOBENZAPRINE 10MG TABLET PO ONE (20:13)
[2023-04-17] MEDS: KETOROLAC 60MG 2ML VIAL IM ONE (20:13)
[2023-04-17] MEDS ORDERED: KETO10TAB PO (21:08)
[2023-04-17] MEDS ORDERED: CYCL-707 PO (21:08)
[2023-04-17 21:38] VITALS: BP 166/96; TEMP 98.2; O2SAT 98
== END 2023-04-17 21:47 | disposition home or self-care (01) ==
LOC: M ED 18:06
DX: M79.651 Pain in right thigh (principal); M25.551 Pain in right hip; M54.16 Radiculopathy, lumbar region; E11.9 Type 2 diabetes mellitus without complications; I10 Essential (primary) hypertension; Z79.1 Long term (current) use of non-steroidal anti-inflammatories (NSAID); Z79.811 Long term (current) use of aromatase inhibitors; Z79.899 Other long term (current) drug therapy; Z79.84 Long term (current) use of oral hypoglycemic drugs
CPT/HCPCS: 72110; 72131; 73502; 96372; 99283; J1885

== ENCOUNTER → 2023-04-21 | Outpatient (REF) | payer OTHER ==
[~2023-04-21] MED LIST changes: +HYDR-3490
[2023-04-21 17:23] LABS: HEMOGLOBIN A1c 10.4 % (4.0-6.0)
[2023-04-21 17:40] LABS: BLOOD UREA NITROGEN 18 MG/DL (9-23); CALCIUM LEVEL 8.5 MG/DL (8.5-10.1); CARBON DIOXIDE LEVEL 27 MMOL/L (20-31); CHLORIDE LEVEL 107 MMOL/L (98-107); CHOLESTEROL LEVEL 117 MG/DL (<200); CHOLESTEROL RISK RATIO 2.58 (<5); CREATININE FOR GFR 0.52 MG/DL (0.55-1.30); GLOMERULAR FILTRATION RATE > 60.0 (>51); GLUCOSE, FASTING 108 MG/DL (60-100); HDL CHOLESTEROL 45.3 MG/DL (>40); LDL CHOLESTEROL 60.7 MG/DL (<100); NON-HDL-C 71.7 MG/DL; POTASSIUM SERUM 4.5 MMOL/L (3.5-5.1); SODIUM LEVEL 140 MMOL/L (136-145); THYROID STIMULATING HORMONE 1.487 uIU/ML (0.55-4.78); TOTAL 25(OH) VITAMIN D 43.3 NG/ML (20.0-100.0); TRIGLYCERIDES LEVEL 55 MG/DL (<150)
== END ==
LOC: M LAB REF 16:31
PROVIDERS: ATTEND Nurse Practitioner Family
DX: I10 Essential (primary) hypertension (principal); E55.9 Vitamin D deficiency, unspecified; E66.9 Obesity, unspecified; E11.65 Type 2 diabetes mellitus with hyperglycemia

== ENCOUNTER 2023-05-28 17:32 | Emergency (ER) | payer OTHER ==
[~2023-05-28] VITALS: Ht 162.6 cm; Wt 99.7 kg
[2023-05-28] MEDS: ACETAMINOPHEN 325 MG TAB PO ONE (20:44)
[2023-05-28] MEDS: IBUPROFEN 600MG TAB PO ONE (20:44)
[2023-05-28] MEDS ORDERED: NAPR-837 PO (21:09)
[2023-05-28 21:26] VITALS: BP 158/80; TEMP 98; O2SAT 100
== END 2023-05-28 21:39 | disposition home or self-care (01) ==
LOC: M ED 17:32
DX: S93.402A Sprain of unspecified ligament of left ankle, initial encounter (principal); Y92.9 Unspecified place or not applicable; Y93.9 Activity, unspecified; Y99.9 Unspecified external cause status; W10.1XXA Fall (on)(from) sidewalk curb, initial encounter; E11.9 Type 2 diabetes mellitus without complications; I10 Essential (primary) hypertension; K21.9 Gastro-esophageal reflux disease without esophagitis; Z79.4 Long term (current) use of insulin; Z79.84 Long term (current) use of oral hypoglycemic drugs; Z79.899 Other long term (current) drug therapy

== ENCOUNTER 2023-07-17 18:54 | Emergency (ER) | payer OTHER ==
[~2023-07-17] VITALS: Ht 162.6 cm; Wt 100.2 kg
[2023-07-17] MEDS: ONDANSETRON 4MG 2ML VIAL IV ONE (19:42)
[2023-07-17] MEDS: NEOSPORIN OINT 0.9 GM PKT TOP ONE (19:42)
[2023-07-17] MEDS: MORPHINE 4 MG/ML 1ML VIAL IV ONE (19:42)
[2023-07-17] MEDS: BOOSTRIX VACCINE (TETANUS/DIPHTH/ACEL. PERTUSSIS) 0.5ML SYR IM.IMMUN ONE (19:43)
[2023-07-17] MEDS ORDERED: BACI28.417 TOP (20:35)
[2023-07-17] MEDS: NORCO, ANEXSIA 5/325MG TABLET (HYDROcodone/ACETAMINOPHEN) PO ONE (20:56)
[2023-07-17 20:59] VITALS: BP 175/85; TEMP 97.8; O2SAT 96
== END 2023-07-17 21:00 | disposition home or self-care (01) ==
LOC: M ED 18:54
DX: S13.4XXA Sprain of ligaments of cervical spine, initial encounter (principal); S93.401A Sprain of unspecified ligament of right ankle, initial encounter; S80.212A Abrasion, left knee, initial encounter; K21.9 Gastro-esophageal reflux disease without esophagitis; I10 Essential (primary) hypertension; E11.9 Type 2 diabetes mellitus without complications; Z79.1 Long term (current) use of non-steroidal anti-inflammatories (NSAID); Z79.811 Long term (current) use of aromatase inhibitors; Z79.899 Other long term (current) drug therapy; Z23 Encounter for immunization; M17.12 Unilateral primary osteoarthritis, left knee; Y92.9 Unspecified place or not applicable; Y93.89 Activity, other specified; Y99.9 Unspecified external cause status; V18.2XXA Unspecified pedal cyclist injured in noncollision transport accident in nontraffic accident, initial encounter
CPT/HCPCS: 70450; 72125; 73564; 73610; 90471; 90715; 96374; 99284; J2405

== ENCOUNTER → 2023-12-03 | Outpatient (REF) | payer OTHER ==
[~2023-12-03] MED LIST changes: +BACI28.417 TOP; +PRED20TA PO
[2023-12-07 15:03] LABS: HPV APTIMA Not Detected (Not Detected)
== END ==
LOC: M SFHCWAGY 17:38
PROVIDERS: ATTEND Nurse Practitioner Family
DX: Z12.4 Encounter for screening for malignant neoplasm of cervix (principal)

== ENCOUNTER → 2023-12-03 | Outpatient (CLI) | payer OTHER | LOC: M WHC 12:34 | PROVIDERS: ATTEND Nurse Practitioner Family | DX: Z12.31 Encounter for screening mammogram for malignant neoplasm of breast (principal) ==

== ENCOUNTER 2024-01-17 13:36 | Emergency (ER) | payer OTHER ==
[~2024-01-17] VITALS: Ht 162.6 cm; Wt 99.4 kg
[2024-01-17] MEDS ORDERED: ISOVUE-370 76% 100ML VIAL As Ordered ONE (22:27)
[2024-01-17 22:29] LABS: BASO # 0.1 10^3/uL (0.0-0.2); BASO % 0.7 % (0.0-1.0); EOS # 0.2 10^3/uL (0.0-0.5); EOS % 2.5 % (0.0-3.0); HEMATOCRIT 34.9 % (36.0-47.0); HEMOGLOBIN 11.7 g/dl (12.0-15.5); LYMPH % 43.9 % (24.0-44.0); MEAN CORPUSCULAR HEMOGLOBIN 28.1 pg (27.0-33.0); MEAN CORPUSCULAR HGB CONC 33.5 g/dl (32.0-36.5); MEAN CORPUSCULAR VOLUME 83.7 fl (80.0-96.0); MONO # 0.6 10^3/uL (0.0-0.8); MONO % 8.6 % (2.0-8.0); NEUTROPHILS % 44.2 % (36.0-66.0); PLATELET COUNT, AUTOMATED 180 10^3/uL (150-450); RED BLOOD COUNT 4.17 10^6/uL (4.00-5.40); WHITE BLOOD COUNT 6.8 10^3/uL (4.0-10.0)
[2024-01-17] MEDS: ACETAMINOPHEN 500 MG TAB PO ONE (22:46)
[2024-01-17 22:48] LABS: CK-MB VALUE MASS 1.1 NG/ML (<3.6)
[2024-01-17 23:12] VITALS: BP 192/88
[2024-01-17] MEDS: LOSARTAN 50MG TABLET PO ONE (23:12)
[2024-01-18 00:01] VITALS: BP 176/77; TEMP 97.3; O2SAT 96
== END 2024-01-18 00:10 | disposition home or self-care (01) ==
LOC: M ED 13:36
DX: S80.02XA Contusion of left knee, initial encounter (principal); S20.219A Contusion of unspecified front wall of thorax, initial encounter; W00.0XXA Fall on same level due to ice and snow, initial encounter; K21.9 Gastro-esophageal reflux disease without esophagitis; E11.9 Type 2 diabetes mellitus without complications; Z79.811 Long term (current) use of aromatase inhibitors; Z79.52 Long term (current) use of systemic steroids; Z79.899 Other long term (current) drug therapy; Y92.410 Unspecified street and highway as the place of occurrence of the external cause; Y93.89 Activity, other specified; Y99.9 Unspecified external cause status
CPT/HCPCS: 36415; 71046; 71260; 73564; 80047; 82550; 82553; 84484; 85025; 93005; 99284; Q9967

== ENCOUNTER 2024-06-26 11:23 | Emergency (ER) | payer OTHER ==
[~2024-06-26] VITALS: Ht 162.6 cm; Wt 100.7 kg
[~2024-06-26 11:23] MED LIST changes: +LIDO1ADH93 TD; -LIDO5DIS41 TD
[2024-06-26 11:26] VITALS: TEMP 97.4
[2024-06-26] MEDS: KETOROLAC 30 MG/ML 1ML VIAL IM ONE (14:09)
[2024-06-26] MEDS: methocarbamoL 500 MG TAB PO ONE (14:09)
[2024-06-26] MEDS ORDERED: NAPR-837 PO (15:14)
[2024-06-26] MEDS ORDERED: METH-1164 PO (15:14)
[2024-06-26 15:22] VITALS: BP 170/92; O2SAT 99
== END 2024-06-26 15:24 | disposition home or self-care (01) ==
LOC: M ED 11:23
DX: M54.32 Sciatica, left side (principal); E11.65 Type 2 diabetes mellitus with hyperglycemia; M25.852 Other specified joint disorders, left hip; M41.86 Other forms of scoliosis, lumbar region; I10 Essential (primary) hypertension; K21.9 Gastro-esophageal reflux disease without esophagitis; Z79.1 Long term (current) use of non-steroidal anti-inflammatories (NSAID); Z79.899 Other long term (current) drug therapy; Z79.52 Long term (current) use of systemic steroids; Z79.85 Long-term (current) use of injectable non-insulin antidiabetic drugs
CPT/HCPCS: 72110; 73502; 80047; 96372; 99283; J1885

== ENCOUNTER → 2024-09-05 | Outpatient (REF) | payer MEDICAID ==
[~2024-09-05] MED LIST changes: +MAALSUS19 PO; +PEPC1TAB5 PO
[2024-09-05 13:44] LABS: APPEARANCE, URINE CLEAR (CLEAR); BACTERIA, URINE AUTO NEGATIVE (NEGATIVE); BILIRUBIN, URINE AUTO NEGATIVE (NEGATIVE); BLOOD, URINE BLOOD NEGATIVE (NEGATIVE); GLUCOSE, URINE (UA) AUTO 3+ mg/dL (NEGATIVE); KETONE, URINE AUTO NEGATIVE (NEGATIVE); LEUKOCYTE ESTERASE, URINE AUTO NEGATIVE (NEGATIVE); NITRITE, URINE AUTO NEGATIVE (NEGATIVE); PROTEIN, URINE AUTO NEGATIVE (NEGATIVE); RBC, URINE AUTO 0 /HPF (0-3); SPECIFIC GRAVITY URINE AUTO 1.009 (1.002-1.035); SQUAMOUS EPITHELIAL CELL UR AU 2 /HPF (0-6); UROBILINOGEN, URINE AUTO 0.2 mg/dL (0.0-2.0); WBC, URINE AUTO 0 /HPF (0-3)
[2024-09-05 15:36] LABS: CALCIUM LEVEL 9.8 MG/DL (8.5-10.1); CARBON DIOXIDE LEVEL 33.0 MMOL/L (20-31); CHLORIDE LEVEL 99.0 MMOL/L (98-107); CREATININE FOR GFR 1.62 MG/DL (0.55-1.30); GLOMERULAR FILTRATION RATE 37.5 (>51); POTASSIUM SERUM 4.1 MMOL/L (3.5-5.1); SODIUM LEVEL 141.0 MMOL/L (136-145)
== END ==
LOC: M LAB REF 11:43
PROVIDERS: ATTEND Nurse Practitioner Family
DX: N76.0 Acute vaginitis (principal); I10 Essential (primary) hypertension

== ENCOUNTER → 2024-09-14 | Outpatient (REF) | payer MEDICAID ==
[2024-09-14 17:19] LABS: CALCIUM LEVEL 9.1 MG/DL (8.5-10.1); CARBON DIOXIDE LEVEL 31.0 MMOL/L (20-31); CHLORIDE LEVEL 103.0 MMOL/L (98-107); CREATININE FOR GFR 0.8 MG/DL (0.55-1.30); GLOMERULAR FILTRATION RATE 87.5 (>51); POTASSIUM SERUM 4.3 MMOL/L (3.5-5.1); SODIUM LEVEL 143.0 MMOL/L (136-145)
== END ==
LOC: M LAB REF 16:39
PROVIDERS: ATTEND Nurse Practitioner Family
DX: I10 Essential (primary) hypertension (principal)

== ENCOUNTER 2024-09-20 10:55 | Emergency (ER) | payer MEDICAID, OTHER ==
[~2024-09-20] VITALS: Ht 162.6 cm; Wt 98.9 kg
[2024-09-20 11:45] LABS: CALCIUM LEVEL 9.0 MG/DL (8.5-10.1); CARBON DIOXIDE LEVEL 24 MMOL/L (20-31); CHLORIDE LEVEL 107 MMOL/L (98-107); CK-MB VALUE MASS 2.5 NG/ML (<3.6); CPK CREATINE PHOSPHOKINASE 114 U/L (34-145); CREATININE FOR GFR 0.69 MG/DL (0.55-1.30); GLOMERULAR FILTRATION RATE > 90.0 (>51); MB/CK RELATIVE INDEX 2.19 (< OR =4); POTASSIUM SERUM 5.3 MMOL/L (3.5-5.1); SODIUM LEVEL 143 MMOL/L (136-145)
[2024-09-20 12:03] LABS: BASO # 0.1 10^3/uL (0.0-0.2); BASO % 0.6 % (0.0-1.0); EOS # 0.1 10^3/uL (0.0-0.5); EOS % 1.6 % (0.0-3.0); LYMPH # 2.7 10^3/uL (1.5-5.0); LYMPH % 31.0 % (24.0-44.0); MONO # 0.6 10^3/uL (0.0-0.8); MONO % 6.8 % (2.0-8.0); NEUTROPHILS # 5.2 10^3/uL (1.5-8.5); NEUTROPHILS % 59.7 % (36.0-66.0); PLATELET COUNT, AUTOMATED 247 10^3/uL (150-450)
[2024-09-20 12:27] LABS: CPK CREATINE PHOSPHOKINASE 95.0 U/L (34-145)
[2024-09-20 12:28] LABS: CK-MB VALUE MASS 2.8 NG/ML (<3.6); MB/CK RELATIVE INDEX 2.94 (< OR =4); POTASSIUM SERUM 4.0 MMOL/L (3.5-5.1)
[2024-09-20] MEDS ORDERED: ISOVUE-370 76% 100 ML VIAL As Ordered ONE (13:26)
[2024-09-20 15:01] VITALS: BP 172/78; TEMP 98.2; O2SAT 98
== END 2024-09-20 15:24 | disposition home or self-care (01) ==
LOC: M ED 10:55 → EDBD 10:55 → M ED 15:24
DX: R07.9 Chest pain, unspecified (principal); R00.1 Bradycardia, unspecified; I25.2 Old myocardial infarction; N20.0 Calculus of kidney; J98.11 Atelectasis; E11.9 Type 2 diabetes mellitus without complications; I10 Essential (primary) hypertension; Z79.2 Long term (current) use of antibiotics; Z79.4 Long term (current) use of insulin; Z79.84 Long term (current) use of oral hypoglycemic drugs; Z79.1 Long term (current) use of non-steroidal anti-inflammatories (NSAID); Z79.899 Other long term (current) drug therapy; Z79.52 Long term (current) use of systemic steroids
CPT/HCPCS: 36415; 71045; 71275; 80047; 80048; 82550; 82553; 84132; 84484; 85025; 93005; 93041; 94760; 99285; Q9967

== ENCOUNTER → 2024-10-10 | Outpatient (REF) | payer OTHER, MEDICAID ==
[~2024-10-10] MED LIST changes: -IBUP-1022 PO; +IBUP600T42 PO
[2024-10-10 15:32] LABS: BASO # 0.0 10^3/uL (0.0-0.2); BASO % 0.2 % (0.0-1.0); EOS # 0.1 10^3/uL (0.0-0.5); EOS % 0.8 % (0.0-3.0); LYMPH # 2.6 10^3/uL (1.5-5.0); LYMPH % 23.8 % (24.0-44.0); MONO # 0.8 10^3/uL (0.0-0.8); MONO % 7.3 % (2.0-8.0); NEUTROPHILS # 7.5 10^3/uL (1.5-8.5); NEUTROPHILS % 67.4 % (36.0-66.0); PLATELET COUNT, AUTOMATED 321 10^3/uL (150-450)
[2024-10-10 15:47] LABS: ERYTHROCYTE SEDIMENTATION RATE 58 mm/hr (0-30)
[2024-10-10 15:50] LABS: C REACTIVE PROTEIN QUANTITATIV 2.12 MG/DL (<1.0)
[2024-10-10 15:52] LABS: ALT/SGPT 35.0 U/L (7.0-40); AST/SGOT 29.0 U/L (<34); CALCIUM LEVEL 9.6 MG/DL (8.5-10.1); CARBON DIOXIDE LEVEL 25.0 MMOL/L (20-31); CHLORIDE LEVEL 106.0 MMOL/L (98-107); CREATININE FOR GFR 0.84 MG/DL (0.55-1.30); GLOMERULAR FILTRATION RATE 82.5 (>51); POTASSIUM SERUM 4.6 MMOL/L (3.5-5.1); SODIUM LEVEL 142.0 MMOL/L (136-145)
[2024-10-10 17:41] LABS: ESTIMATED AVERAGE GLUCOSE 177.0 MG/DL (60-110)
== END ==
LOC: M LAB REF 11:51
PROVIDERS: ATTEND Nurse Practitioner Family
DX: R11.2 Nausea with vomiting, unspecified (principal); E11.65 Type 2 diabetes mellitus with hyperglycemia; R19.7 Diarrhea, unspecified

== ENCOUNTER → 2024-10-31 | Outpatient (CLI) | payer OTHER | LOC: M RAD 11:21 | PROVIDERS: ATTEND Physical Medicine & Rehabilitation | DX: M25.512 Pain in left shoulder (principal); M25.511 Pain in right shoulder ==

== ENCOUNTER → 2024-11-15 | Outpatient (REF) | payer OTHER | LOC: M LAB REF 16:45 | PROVIDERS: ATTEND Physician Assistant | DX: B34.9 Viral infection, unspecified (principal) ==

== ENCOUNTER → 2024-11-16 | Outpatient (CLI) | payer MEDICAID, OTHER | LOC: M CARPUL 10:31 | PROVIDERS: ATTEND Nurse Practitioner Family | DX: I34.0 Nonrheumatic mitral (valve) insufficiency (principal); Z87.898 Personal history of other specified conditions ==

== ENCOUNTER 2024-12-04 13:57 | Emergency (ER) | payer OTHER | END 2024-12-04 14:08 | disposition left against medical advice (07) | LOC: M ED 13:57 | DX: Z53.21 Procedure and treatment not carried out due to patient leaving prior to being seen by health care provider (principal) ==

== ENCOUNTER 2024-12-07 09:11 | Outpatient (RCR) | payer OTHER ==
[2024-12-07] MEDS ORDERED: OMEP-173 (11:13)
[2024-12-07] MEDS ORDERED: IBUP200T46 PO (11:13)
[2024-12-07] MEDS ORDERED: SERT25TA21 (11:13)
[2024-12-07] MEDS ORDERED: ATOR1TAB19 (11:13)
[2024-12-07] MEDS ORDERED: TIRZ2.5P (11:13)
[2024-12-07] MEDS ORDERED: CETI-24 (11:13)
[2024-12-07] MEDS ORDERED: ALBU8.5H (11:13)
[2024-12-07] MEDS ORDERED: METO1TAB32 (11:13)
[2024-12-07] MEDS ORDERED: AMLO1TAB25 (11:13)
[2024-12-07] MEDS ORDERED: METH-1165 PO (16:10)
[2024-12-07] MEDS ORDERED: KETO-204 PO (16:10)
== END 2024-12-08 ==
LOC: M PT 09:11
PROVIDERS: ATTEND Physical Medicine & Rehabilitation
DX: M25.511 Pain in right shoulder (principal); M25.512 Pain in left shoulder; M47.892 Other spondylosis, cervical region; M54.31 Sciatica, right side; E11.9 Type 2 diabetes mellitus without complications; I10 Essential (primary) hypertension; Z79.52 Long term (current) use of systemic steroids; Z79.899 Other long term (current) drug therapy; Z79.02 Long term (current) use of antithrombotics/antiplatelets
CPT/HCPCS: 96372; 97162; 99284; J1885

== ENCOUNTER 2024-12-07 10:47 | Emergency (ER) | payer OTHER ==
[~2024-12-07] VITALS: Ht 160 cm; Wt 95.2 kg
[2024-12-07] MEDS ORDERED: SERT25TA21 (11:13)
[2024-12-07] MEDS ORDERED: ATOR1TAB19 (11:13)
[2024-12-07] MEDS ORDERED: IBUP200T46 PO (11:13)
[2024-12-07] MEDS ORDERED: CETI-24 (11:13)
[2024-12-07] MEDS ORDERED: TIRZ2.5P (11:13)
[2024-12-07] MEDS ORDERED: METO1TAB32 (11:13)
[2024-12-07] MEDS ORDERED: ALBU8.5H (11:13)
[2024-12-07] MEDS ORDERED: OMEP-173 (11:13)
[2024-12-07] MEDS ORDERED: AMLO1TAB25 (11:13)
[2024-12-07] MEDS: ACETAMINOPHEN 500 MG TAB PO ONE (12:17)
[2024-12-07] MEDS: KETOROLAC 30 MG/ML 1 ML VIAL IM ONE (13:06)
[2024-12-07 15:32] VITALS: BP 198/94
[2024-12-07] MEDS: LOSARTAN 50 MG TABLET PO ONE (15:32)
[2024-12-07 16:07] VITALS: BP 226/96
[2024-12-07] MEDS ORDERED: METH-1165 PO (16:10)
[2024-12-07] MEDS ORDERED: KETO-204 PO (16:10)
[2024-12-07 16:19] VITALS: TEMP 98; O2SAT 99
== END 2024-12-07 16:21 | disposition home or self-care (01) ==
LOC: M ED 10:47
DX: M54.31 Sciatica, right side (principal); E11.9 Type 2 diabetes mellitus without complications; I10 Essential (primary) hypertension; Z79.52 Long term (current) use of systemic steroids; Z79.899 Other long term (current) drug therapy; Z79.02 Long term (current) use of antithrombotics/antiplatelets

== ENCOUNTER → 2024-12-27 | Day surgery (SDC) | payer OTHER ==
[~2024-12-27] VITALS: Ht 160 cm; Wt 94.8 kg
[~2024-12-27] MED LIST changes: +ALBU8.5H; +AMLO1TAB25; +ATOR1TAB19 PO; +CETI-24; +IBUP200T46 PO; +KETO-204 PO; +LIDOCAINE 2% 100 MG/5 ML SDV (FOR ANES.) As Ordered ONE; +METH-1165 PO; +METO1TAB32; +SERT25TA21; +TIRZ2.5P; +hydrALAZINE 20 MG/ML 1 ML VIAL As Ordered ONE
[2024-12-27] MEDS: MORPHINE 2 MG/ML 1 ML VIAL IV ONE (10:30)
[2024-12-27 10:53] VITALS: BP 120/58; O2SAT 100
== END | disposition home or self-care (01) ==
LOC: M OPP 07:11
PROVIDERS: ATTEND Surgery
DX: R10.32 Left lower quadrant pain (principal); K64.0 First degree hemorrhoids; Z79.84 Long term (current) use of oral hypoglycemic drugs; Z79.85 Long-term (current) use of injectable non-insulin antidiabetic drugs; Z79.899 Other long term (current) drug therapy
CPT/HCPCS: 45378; 93005; J0360

== ENCOUNTER 2025-02-02 20:51 | Emergency (ER) | payer OTHER ==
[~2025-02-02] VITALS: Ht 160 cm; Wt 100.1 kg
[~2025-02-02 20:51] MED LIST changes: -LIDOCAINE 2% 100 MG/5 ML SDV (FOR ANES.) As Ordered ONE; -hydrALAZINE 20 MG/ML 1 ML VIAL As Ordered ONE
[2025-02-02 21:15] LABS: BASO # 0.1 10^3/uL (0.0-0.2); BASO % 0.6 % (0.0-1.0); EOS # 0.2 10^3/uL (0.0-0.5); EOS % 1.7 % (0.0-3.0); LYMPH # 3.7 10^3/uL (1.5-5.0); LYMPH % 39.4 % (24.0-44.0); MONO # 0.7 10^3/uL (0.0-0.8); MONO % 7.0 % (2.0-8.0); NEUTROPHILS # 4.7 10^3/uL (1.5-8.5); NEUTROPHILS % 51.0 % (36.0-66.0); PLATELET COUNT, AUTOMATED 242 10^3/uL (150-450)
[2025-02-02 21:48] VITALS: TEMP 99
[2025-02-02] MEDS: ONDANSETRON 4MG/2ML VIAL IV ONE (21:48)
[2025-02-02] MEDS: MORPHINE 2 MG/ML 1 ML VIAL IV ONE (21:48)
[2025-02-02 21:51] LABS: CALCIUM LEVEL 9.2 MG/DL (8.5-10.1); CARBON DIOXIDE LEVEL 32 MMOL/L (20-31); CHLORIDE LEVEL 99 MMOL/L (98-107); CK-MB VALUE MASS 2.5 NG/ML (<3.6); CPK CREATINE PHOSPHOKINASE 95 U/L (34-145); CREATININE FOR GFR 0.77 MG/DL (0.55-1.30); GLOMERULAR FILTRATION RATE > 90.0 (>51); MB/CK RELATIVE INDEX 2.63 (< OR =4); POTASSIUM SERUM 4.2 MMOL/L (3.5-5.1); SODIUM LEVEL 139 MMOL/L (136-145)
[2025-02-02 21:52] VITALS: BP 146/68
[2025-02-03 01:21] VITALS: O2SAT 96
== END 2025-02-03 01:35 | disposition home or self-care (01) ==
LOC: M ED 20:51
DX: S80.02XA Contusion of left knee, initial encounter (principal); M25.512 Pain in left shoulder; E11.9 Type 2 diabetes mellitus without complications; I10 Essential (primary) hypertension; E78.5 Hyperlipidemia, unspecified; K21.9 Gastro-esophageal reflux disease without esophagitis; F32.9 Major depressive disorder, single episode, unspecified; Z79.899 Other long term (current) drug therapy; Z79.1 Long term (current) use of non-steroidal anti-inflammatories (NSAID); W19.XXXA Unspecified fall, initial encounter; Y92.89 Other specified places as the place of occurrence of the external cause; Y93.89 Activity, other specified; Y99.8 Other external cause status
CPT/HCPCS: 70450; 72125; 73564; 80048; 82550; 82553; 84484; 85025; 96374; 96375; 99284; J2405

== ENCOUNTER 2025-02-07 10:36 | Emergency (ER) | payer OTHER ==
[~2025-02-07] VITALS: Ht 160 cm; Wt 90.6 kg
[2025-02-07 10:42] VITALS: BP 170/82; TEMP 97.2; O2SAT 98
[2025-02-07] MEDS: KETOROLAC 30 MG/ML 1 ML VIAL IM ONE (14:17)
== END 2025-02-07 16:07 | disposition left against medical advice (07) ==
LOC: M ED 10:36
DX: R51.9 Headache, unspecified (principal); E11.9 Type 2 diabetes mellitus without complications; I10 Essential (primary) hypertension; Z53.21 Procedure and treatment not carried out due to patient leaving prior to being seen by health care provider; Z79.899 Other long term (current) drug therapy; Z79.1 Long term (current) use of non-steroidal anti-inflammatories (NSAID)
CPT/HCPCS: 70450; 96372; 99281; J1885